=== PATIENT | female | born 1950 | race Caucasian/White ===

== ENCOUNTER 2017-05-05 16:30 | Inpatient (IN) | payer MEDICARE, OTHER ==
[~2017-05-05] VITALS: Ht 154.9 cm; Wt 90.6 kg
[~2017-05-05 16:30] MED LIST: ASPI-516 CHEW; BENZ2TAB PO; BUSP5TAB PO; CEPH-460 PO; CHOL100025 CHEW; FENO145T2 PO; LEVO50TA4 PO; METO50TA PO; PARO40TA2 PO; RANI1TAB5 PO; RISP3 PO
[2017-05-05 16:31] VITALS: BP 131/60; PULSE 90; RESP 14; TEMP 98; O2SAT 95
[2017-05-05 17:59] VITALS: BP 141/89; PULSE 85; RESP 16; TEMP 98.6; O2SAT 93
--- NOTE | 2017-05-05 18:52 | PD ---
HPI Chief Complaint: Psychiatric Symptoms Time Seen by Provider: 17:59 Travel History International Travel<30 days: No Contact w/Intl Traveler<30days: No Traveled to known affect area: No History of Present Illness HPI 66-year-old white female presents to emergency department on a voluntary basis with her . Patient's has dropped his off and gone home but left his phone number. The patient here states that she's feeling depressed. She states that she is not getting out of bed. She sleeping. She is feeling overwhelmed. Patient has history of schizoaffective disorder, depression and catatonia. Patient states that her symptoms and be getting worse over last several days weeks. Patient is a poor historian. Unable to get a history from the patient's . PFSH Past Medical History Narrative Medical Anxiety, depression, schizoaffective, hypercholesterolemia, hypertension, hypothyroidism, arthritis Blood Disorders: No Anxiety: Yes Depression: Yes Cancer: No Cardiac Catheterization: Yes High Cholesterol: Yes Chest Pain: Yes Diabetes: No Diminished Hearing: No Endocrine: Yes Genitourinary: No Herniated Disk: Yes (NECK FUSION) Hypertension: Yes Musculoskeletal: Yes Neurologic: Yes (MINI STROKE 5 YRS AGO, PER ) Psychiatric: Yes Respiratory: No Seizures: No Thyroid Disease: Yes Tetanus Vaccination: Unknown : 1 Para: 1 Miscarriage: 0 : 0 Past Surgical History Narrative Surgical Bilateral knee replacements, cervical fusion, , hysterectomy, cholecystectomy, tonsillectomy Abdominal Surgery: Yes Appendectomy: Yes Section: Yes Cholecystectomy: Yes Gynecologic Surgery: Yes (HYSTERECTOMY, X1) Hysterectomy: Yes Joint Replacement: Yes (BILATERAL KNEE REPLACEMENTS) Thoracic Surgery: Yes (NECK FUSION WITH THA IN PLACE) Tonsillectomy: Yes Social History Alcohol Use: No Tobacco Use: No Substance Use: No Allergies-Medications (Allergen,Severity, Reaction): Coded Allergies: mirtazapine (Unverified Allergy, Severe, 12/29/16) JITTERY/AGITATED Reported Meds & Prescriptions Reported Meds & Active Scripts Active Keflex (Cephalexin) 500 Mg Cap 500 Mg PO Q12H Reported Risperdal (Risperidone) 3 Mg Tab 3 Mg PO BID Vitamin D3 (Cholecalciferol) 1,000 Unit Chew 2,000 Units CHEW DAILY Benztropine (Benztropine Mesylate) 2 Mg Tab 2 Mg PO BID Aspirin 81 Mg Chew 81 Mg CHEW DAILY Buspirone (Buspirone HCl) 5 Mg Tab 5 Mg PO BID Fenofibrate 145 Mg Tab 145 Mg PO DAILY Levothyroxine (Levothyroxine Sodium) 50 Mcg Tab 50 Mcg PO DAILY Paroxetine (Paroxetine HCl) 40 Mg Tab 40 Mg PO DAILY Metoprolol Tartrate 50 Mg Tab 50 Mg PO BID Ranitidine 75 (Ranitidine HCl) 75 Mg Tab 75 Mg PO BID Take 30 to 60 minutes before eating food or drinking beverages that cause heartburn. Review of Systems ROS Limitations: Poor Historian Psychiatric: Positive: Anxiety, Depression, Mood Disorder, No: Suicidal Ideations, Disorder of Thought, Substance Abuse, Homicidal Ideation Physical Exam Narrative GENERAL: Obese, well-developed patient. Patient's examined with the nurse present. SKIN: Warm and dry. Patient has some slight skin irritation in her folds of her groin. Positive erythema. She has a area of ecchymosis to her inner left thigh. HEAD: Normocephalic and atraumatic. EYES: No scleral icterus. No injection or drainage. ENT: No nasal drainage noted. Mucous membranes pink. Airway patent. NECK: Supple, trachea midline. Moves head freely without obvious discomfort. Surgical scar secondary to cervical fusion CARDIOVASCULAR: Regular rate and rhythm without murmurs, gallops, or rubs. RESPIRATORY: Breath sounds equal bilaterally. No accessory muscle use. GASTROINTESTINAL: Obese, positive bowel sounds, Abdomen soft, non-tender, nondistended. EXTREMITIES: No cyanosis or edema. Surgical scars from bilateral knee replacements. BACK: Nontender without obvious deformity. No CVA tenderness. NEURO: Patient is alert and oriented. no sensorimotor deficits. Nonfocal. Normal speech. PSYCH: No delusions. No auditory or visual hallucinations. Flat affect. Poor concentration. Patient closes her eyes intermittently during the interview. Data Data Last Documented VS Vital Signs Date Time Temp Pulse Resp B/P (MAP) Pulse Ox O2 Delivery O2 Flow Rate FiO2 05/05/17 17:59 98.6 85 16 141/89 (106) 93 Orders Orders Complete Blood Count With Diff (05/05/17 18:30) Comprehensive Metabolic Panel (05/05/17 18:30) Thyroid Stimulating Hormone (05/05/17 18:30) Urinalysis - C+S If Indicated (05/05/17 18:30) Psych Screen (05/05/17 18:30) Drug Screen, Random Urine (05/05/17 18:30) Alcohol (Ethanol) (05/05/17 18:30) Salicylates (Aspirin) (05/05/17 18:30) Tylenol (Acetaminophen) (05/05/17 18:30) Urine Culture (05/05/17 19:40) Nitrofurantoin Monohyd Macrocr (Macrobid (05/05/17 20:45) Potassium Chloride (Kcl) (05/05/17 20:45) Nystatin Cream (Mycostatin Cream) (05/05/17 20:45) Labs Laboratory Tests Test 05/05/17 18:48 05/05/17 19:40 White Blood Count 8.2 TH/MM3 Red Blood Count 3.77 MIL/MM3 Hemoglobin 10.2 GM/DL Hematocrit 31.4 % Mean Corpuscular Volume 83.3 FL Mean Corpuscular Hemoglobin 27.1 PG Mean Corpuscular Hemoglobin Concent 32.6 % Red Cell Distribution Width 15.4 % Platelet Count 306 TH/MM3 Mean Platelet Volume 8.5 FL Neutrophils (%) (Auto) 71.0 % Lymphocytes (%) (Auto) 20.1 % Monocytes (%) (Auto) 7.1 % Eosinophils (%) (Auto) 1.3 % Basophils (%) (Auto) 0.5 % Neutrophils # (Auto) 5.8 TH/MM3 Lymphocytes # (Auto) 1.6 TH/MM3 Monocytes # (Auto) 0.6 TH/MM3 Eosinophils # (Auto) 0.1 TH/MM3 Basophils # (Auto) 0.0 TH/MM3 CBC Comment DIFF FINAL Differential Comment Blood Urea Nitrogen 9 MG/DL Creatinine 0.72 MG/DL Random Glucose 119 MG/DL Total Protein 6.7 GM/DL Albumin 2.6 GM/DL Calcium Level 8.2 MG/DL Alkaline Phosphatase 64 U/L Aspartate Amino Transf (AST/SGOT) 24 U/L Alanine Aminotransferase (ALT/SGPT) 14 U/L Total Bilirubin 0.2 MG/DL Sodium Level 140 MEQ/L Potassium Level 3.0 MEQ/L Chloride Level 101 MEQ/L Carbon Dioxide Level 30.2 MEQ/L Anion Gap 9 MEQ/L Estimat Glomerular Filtration Rate 82 ML/MIN Thyroid Stimulating Hormone 3rd Gen 1.110 uIU/ML Salicylates Level LESS THAN 1.7 MG/DL Acetaminophen Level LESS THAN 2.0 MCG/ML Ethyl Alcohol Level LESS THAN 3 MG/DL Urine Color YELLOW Urine Turbidity HAZY Urine pH 6.0 Urine Specific [place] 1.010 Urine Protein NEG mg/dL Urine Glucose (UA) NEG mg/dL Urine Ketones NEG mg/dL Urine Occult Blood NEG Urine Nitrite NEG Urine Bilirubin NEG Urine Urobilinogen LESS THAN 2.0 MG/DL Urine Leukocyte Esterase LARGE Urine RBC 2 /hpf Urine WBC 94 /hpf Urine Squamous Epithelial Cells 1 /hpf Urine Bacteria OCC /hpf Urine Hyaline Casts 1 /lpf Urine Mucus FEW /lpf Microscopic Urinalysis Comment CULTURE INDICATED Urine Opiates Screen NEG Urine Barbiturates Screen NEG Urine Amphetamines Screen NEG Urine Benzodiazepines Screen NEG Urine Cocaine Screen NEG Urine Cannabinoids Screen NEG MDM Medical Decision Making Medical Screen Exam Complete: Yes Emergency Medical Condition: Yes Medical Record Reviewed: Yes Interpretation(s) Laboratory Tests Test 05/05/17 18:48 05/05/17 19:40 White Blood Count 8.2 TH/MM3 Red Blood Count 3.77 MIL/MM3 Hemoglobin 10.2 GM/DL Hematocrit 31.4 % Mean Corpuscular Volume 83.3 FL Mean Corpuscular Hemoglobin 27.1 PG Mean Corpuscular Hemoglobin Concent 32.6 % Red Cell Distribution Width 15.4 % Platelet Count 306 TH/MM3 Mean Platelet Volume 8.5 FL Neutrophils (%) (Auto) 71.0 % Lymphocytes (%) (Auto) 20.1 % Monocytes (%) (Auto) 7.1 % Eosinophils (%) (Auto) 1.3 % Basophils (%) (Auto) 0.5 % Neutrophils # (Auto) 5.8 TH/MM3 Lymphocytes # (Auto) 1.6 TH/MM3 Monocytes # (Auto) 0.6 TH/MM3 Eosinophils # (Auto) 0.1 TH/MM3 Basophils # (Auto) 0.0 TH/MM3 CBC Comment DIFF FINAL Differential Comment Blood Urea Nitrogen 9 MG/DL Creatinine 0.72 MG/DL Random Glucose 119 MG/DL Total Protein 6.7 GM/DL Albumin 2.6 GM/DL Calcium Level 8.2 MG/DL Alkaline Phosphatase 64 U/L Aspartate Amino Transf (AST/SGOT) 24 U/L Alanine Aminotransferase (ALT/SGPT) 14 U/L Total Bilirubin 0.2 MG/DL Sodium Level 140 MEQ/L Potassium Level 3.0 MEQ/L Chloride Level 101 MEQ/L Carbon Dioxide Level 30.2 MEQ/L Anion Gap 9 MEQ/L Estimat Glomerular Filtration Rate 82 ML/MIN Thyroid Stimulating Hormone 3rd Gen 1.110 uIU/ML Salicylates Level LESS THAN 1.7 MG/DL Acetaminophen Level LESS THAN 2.0 MCG/ML Ethyl Alcohol Level LESS THAN 3 MG/DL Urine Color YELLOW Urine Turbidity HAZY Urine pH 6.0 Urine Specific [place] 1.010 Urine Protein NEG mg/dL Urine Glucose (UA) NEG mg/dL Urine Ketones NEG mg/dL Urine Occult Blood NEG Urine Nitrite NEG Urine Bilirubin NEG Urine Urobilinogen LESS THAN 2.0 MG/DL Urine Leukocyte Esterase LARGE Urine RBC 2 /hpf Urine WBC 94 /hpf Urine Squamous Epithelial Cells 1 /hpf Urine Bacteria OCC /hpf Urine Hyaline Casts 1 /lpf Urine Mucus FEW /lpf Microscopic Urinalysis Comment CULTURE INDICATED Urine Opiates Screen NEG Urine Barbiturates Screen NEG Urine Amphetamines Screen NEG Urine Benzodiazepines Screen NEG Urine Cocaine Screen NEG Urine Cannabinoids Screen NEG Differential Diagnosis MDM: High Differential diagnoses: Schizophrenia, schizoaffective disorder, bipolar, anxiety, depression, adjustment reaction, mood disorder NOS, ODD, depressive disorder NOS, dementia, dementia with agitation, psychosis NOS, substance induced mood disorder, DMDD, Asperger syndrome, infection,electrolyte abnormality, malingering. Narrative Course Mental health screening discussed with the patient. Psychiatric screen ordered. Patient been medically cleared. Patient is given Macrobid 100 mg by mouth, potassium 40 mEq by mouth, and nystatin cream. This is medical clearance for psychiatric admission, UTI, hypokalemia, intertrigo Diagnosis Primary Impression: Medical clearance for psychiatric admission Additional Impressions: UTI hypokalemia intertrigo Condition: Stable Howie Pate May 05, 2017 18:52
[2017-05-05 19:04] LABS: AUTOMATED NEUTROPHIL # 5.8 TH/MM3 (1.8-7.7); BASOPHIL % 0.5 % (0.0-2.0); EOSINOPHIL # 0.1 TH/MM3 (0-0.4); EOSINOPHIL % 1.3 % (0.0-4.0); HEMATOCRIT 31.4 % (35.0-46.0); HEMOGLOBIN 10.2 GM/DL (11.6-15.3); LYMPH % 20.1 % (9.0-44.0); LYMPHOCYTE # 1.6 TH/MM3 (1.0-4.8); MEAN CELL VOLUME 83.3 FL (80.0-100.0); MEAN CORPUSCULAR HEMOGLOBIN 27.1 PG (27.0-34.0); MEAN CORPUSCULAR HGB CONC 32.6 % (32.0-36.0); MEAN PLATELET VOLUME 8.5 FL (7.0-11.0); MONO % 7.1 % (0.0-8.0); MONOCYTE # 0.6 TH/MM3 (0-0.9); PLATELET COUNT 306 TH/MM3 (150-450); RED BLOOD COUNT 3.77 MIL/MM3 (4.00-5.30); RED CELL DISTRIBUTION WIDTH 15.4 % (11.6-17.2); WHITE BLOOD COUNT 8.2 TH/MM3 (4.0-11.0)
[2017-05-05 19:20] LABS: ALBUMIN 2.6 GM/DL (3.4-5.0); AST (GOT) 24 U/L (15-37); BICARBONATE 30.2 MEQ/L (21.0-32.0); BLOOD UREA NITROGEN 9 MG/DL (7-18); CALCIUM 8.2 MG/DL (8.5-10.1); CHLORIDE 101 MEQ/L (98-107); CREATININE 0.72 MG/DL (0.50-1.00); GLOMERULAR FILTRATION RATE 82 ML/MIN (>89); GLUCOSE,RANDOM 119 MG/DL (74-106); SODIUM (NA) 140 MEQ/L (136-145)
[2017-05-05 19:21] LABS: ALT (GPT) 14 U/L (10-53)
[2017-05-05 19:31] LABS: ACETAMINOPHEN LESS THAN 2.0 MCG/ML (10.0-30.0); ALKALINE PHOSPHATASE 64 U/L (45-117); TOTAL BILIRUBIN ADULT 0.2 MG/DL (0.2-1.0); TOTAL PROTEIN 6.7 GM/DL (6.4-8.2)
[2017-05-05 20:02] LABS: BACTERIA, URINE OCC /hpf; BILIRUBIN, URINE NEG (NEG); BLOOD, URINE NEG (NEG); GLUCOSE,URINE NEG (NEG); HYALINE CAST, URINE 1 /lpf (RARE); KETONE, URINE NEG (NEG); MUCUS URINE FEW /lpf (OCC); NITRITE,URINE NEG (NEG); SQUAMOUS EPITHELIAL CELL URINE 1 /hpf (0-5); URINE COLOR YELLOW (YELLW/STRAW); URINE LEUKOCYTE ESTERASE LARGE (NEG)
[2017-05-05] MEDS ORDERED: POTASSIUM CHLORIDE 20 MEQ CONTROLLED RELEASE TAB PO ONE (20:45)
[2017-05-05] MEDS ORDERED: NYSTATIN 100,000 UNIT/GM CREAM 15 GM TOPICAL ONE (20:45)
[2017-05-05] MEDS ORDERED: NITROFURANTOIN MONOHYD MACROCR 100 MG CAP PO ONE (20:45)
[2017-05-05] MEDS ORDERED: LORazepam 1 MG TAB PO ONE (23:00)
[2017-05-05 23:49] VITALS: BP 137/61; PULSE 84; RESP 16; TEMP 95.2; O2SAT 97
[2017-05-06 02:44] VITALS: BP 139/70; PULSE 103; RESP 16; TEMP 97.4; O2SAT 95
[2017-05-06 06:32] VITALS: BP 160/67; PULSE 89; RESP 16; TEMP 97.6; O2SAT 96
[2017-05-06] MEDS ORDERED: LORazepam 1 MG TAB PO ONE (10:15)
[2017-05-06 10:26] VITALS: BP 139/73; PULSE 108; RESP 16; O2SAT 96
[2017-05-06] MEDS ORDERED: diphenhydrAMINE HCL 50 MG/ML VIAL IM PRN (15:15)
[2017-05-06] MEDS ORDERED: ALUMINUM/MAGNESIUM/SIMETH 30 ML CUP PO PRN (15:15)
[2017-05-06] MEDS ORDERED: MAGNESIUM HYDROXIDE SUSP 30 ML CUP PO PRN (15:15)
[2017-05-06] MEDS ORDERED: LORazepam 2 MG/ML VIAL IM PRN (15:15)
--- NOTE | 2017-05-06 15:21 | HHI.HP ---
Provisional Diagnosis Admission Date [place] I. Major depressive disorder, recurrent, severe Certification of Person's Competence To Provide Express and Informed Consent I have personally examined Adrianne Andrade , a person being served at [facility] on, May 06, 2017 15:15. Express and informed consent means consent voluntarily given in writing, by a competent person, after sufficient explanation and disclosure of the subject matter involved to enable the person to make a knowing and willful decision without any element of force, fraud, deceit, duress, or other form of constraint or coercion. This person is 18 years of age or older, is not now known to be incompetent to consent to treatment with a guardian advocate, and does not have a health care surrogate or proxy currently making medical treatment decisions. I have found this person to be one of the following: [x] Competent to provide express and informed consent, as defined above, for voluntary admission to this facility and is competent to provide express and informed consent for treatment. He/she has the consistent capacity to make well reasoned, willful, and knowing decisions concerning his or her medical or mental health treatment. The person fully and consistently understands the purpose of the admission for examination/placement and is fully capable of personally exercising all rights [place] Incompetent to provide express and informed consent to voluntary admission, and this is incompetent to provide express and informed consent to treatment. The person must be transferred to involuntary status and a petition for a guardian advocate filed with the Circuit Court. [] Refusing to provide express and informed consent to voluntary admission but is competent to provide express and informed consent for treatment. The person must be discharged or transferred to involuntary status. Form shall be completed within 24 hours of a person's arrival at the receiving facility and filed in the clinical record of each person: 1. Admitted on a voluntary basis 2. Permitted to provide express and informed consent to his/her own treatment 3. Allowed to transfer from involuntary to voluntary status 4. Prior to permitting a person to consent to his or her own treatment after having been previously found incompetent to consent to treatment. History of Present Illness Capacity: Has Capacity HPI 66-year-old female brought in voluntarily by her due to severe symptoms of depression coupled with suicidal thinking and self neglect. Patient has been admitted to [facility] on at least 2 previous occasions. She has been considered for a diagnosis of schizoaffective disorder but appears most recently to have been diagnosed with recurrent major depression. At this time, the patient is moving slowly if at all. Her speech response latency has increased dramatically. Her hygiene has deteriorated. She reports multiple symptoms of depression including depressed mood, anhedonia, diminished energy, thoughts of suicide and (without current plan), anxiety, initial and middle insomnia, feelings of hopelessness and helplessness, decreased self- esteem, and mental confusion. The patient was dropped off by her . Reportedly he did not stay for her evaluation. He also reportedly is unable to care for her. They have been for many years. The patient does not abuse alcohol or illicit substances. She is treated by Dr. Peck, on an outpatient basis and has been prescribed what what this physician considers to be a large amount of Seroquel. She is unable to contract for safety. Review of Systems ROS Limitations: Clinical Condition Psychiatric: COMPLAINS OF: Anxiety, Depression, Suicidal Ideation Except as stated in HPI: all other systems reviewed are Neg Past Psych History Psychological trauma history Unknown for psychological trauma. Violence risk - others (6 mos) Minimal Violence risk - self (6 mos) High Substance Abuse History Drugs/Alcohol past 12 months Denied Past Family Social History Coded Allergies: mirtazapine (Unverified Allergy, Severe, 12/29/16) JITTERY/AGITATED Reported Medications Risperidone (Risperdal) 3 Mg Tab, 3 MG PO BID, TAB 0 Refills 04/06/16 Cholecalciferol (Vitamin D3) 1,000 Unit Chew, 2000 UNITS CHEW DAILY for Nutritional Supplement, BOTTLE 0 Refills 04/06/16 Buspirone (Buspirone) 5 Mg Tab, 5 MG PO BID for Anxiety, TAB 0 Refills 04/06/16 Fenofibrate (Fenofibrate) 145 Mg Tab, 145 MG PO DAILY, TAB 0 Refills 04/06/16 Levothyroxine (Levothyroxine) 50 Mcg Tab, 50 MCG PO DAILY for Thyroid, TAB 0 Refills 04/06/16 Paroxetine (Paroxetine) 40 Mg Tab, 40 MG PO DAILY, TAB 0 Refills 04/06/16 Metoprolol Tartrate (Metoprolol Tartrate) 50 Mg Tab, 50 MG PO BID, TAB 0 Refills 04/06/16 Ranitidine (Ranitidine 75) 75 Mg Tab, 75 MG PO BID for Heartburn, TAB 0 Refills Take 30 to 60 minutes before eating food or drinking beverages that cause heartburn. 04/06/16 Discontinued Reported Medications Aspirin (Aspirin) 81 Mg Chew, 81 MG CHEW DAILY, TAB 0 Refills 04/06/16 Discontinued Scripts Cephalexin (Keflex) 500 Mg Cap, 500 MG PO Q12H for Infection, #12 CAP 0 Refills Prov:Sven Saeed MD R3 04/07/16 Current Medications Medications (Trade) Dose Ordered Sig/Subhash Route Start Time Stop Time Status Last Admin (Ativan) 1 mg Q6H PRN PO 05/06/17 15:15 UNV (Ativan Inj) 1 mg Q6H PRN IM 05/06/17 15:15 UNV (Benadryl) 50 mg Q6H PRN PO 05/06/17 15:15 UNV (Benadryl Inj) 50 mg Q6H PRN IM 05/06/17 15:15 UNV (Tylenol) 650 mg Q4H PRN PO 05/06/17 15:15 UNV (Milk Of Magnesia Liq) 30 ml DAILY PRN PO 05/06/17 15:15 UNV (Mag-Al Plus Susp Liq) 30 ml Q6H PRN PO 05/06/17 15:15 UNV (Desyrel) 50 mg HS PRN PO 05/06/17 15:15 UNV (Tricor) 145 mg DAILY PO 05/07/17 09:00 UNV (Synthroid) 50 mcg DAILY PO 05/06/17 15:15 UNV (Lopressor) 50 mg BID PO 05/06/17 21:00 UNV Non-Formulary Medication 75 mg BID PO 05/06/17 21:00 UNV Family Psych History Positive for mood and anxiety issues. Social History Patient is unemployed. She lives with her of many years. She has a history of recurrent major depressive episodes. She does not abuse alcohol or drugs. She has inadequate family support. Patient's Strengths (min. 2) Verbal and has access to healthcare. Physical Exam GENERAL: SKIN: Warm and dry. HEAD: Normocephalic. EYES: No scleral icterus. No injection or drainage. NECK: Supple, trachea midline. No JVD or lymphadenopathy. CARDIOVASCULAR: Regular rate and rhythm without murmurs, gallops, or rubs. RESPIRATORY: Breath sounds equal bilaterally. No accessory muscle use. GASTROINTESTINAL: Abdomen soft, non-tender, nondistended. MUSCULOSKELETAL: No cyanosis, or edema. BACK: Nontender without obvious deformity. No CVA tenderness. Vital Signs Vital Signs Date Time Temp Pulse Resp B/P (MAP) Pulse Ox O2 Delivery O2 Flow Rate FiO2 05/06/17 10:26 108 16 139/73 (95) 96 Room Air 05/06/17 06:32 97.6 Lab Results Test 05/05/17 18:48 05/05/17 19:40 White Blood Count 8.2 TH/MM3 Red Blood Count 3.77 MIL/MM3 Hemoglobin 10.2 GM/DL Hematocrit 31.4 % Mean Corpuscular Volume 83.3 FL Mean Corpuscular Hemoglobin 27.1 PG Mean Corpuscular Hemoglobin Concent 32.6 % Red Cell Distribution Width 15.4 % Platelet Count 306 TH/MM3 Mean Platelet Volume 8.5 FL Neutrophils (%) (Auto) 71.0 % Lymphocytes (%) (Auto) 20.1 % Monocytes (%) (Auto) 7.1 % Eosinophils (%) (Auto) 1.3 % Basophils (%) (Auto) 0.5 % Neutrophils # (Auto) 5.8 TH/MM3 Lymphocytes # (Auto) 1.6 TH/MM3 Monocytes # (Auto) 0.6 TH/MM3 Eosinophils # (Auto) 0.1 TH/MM3 Basophils # (Auto) 0.0 TH/MM3 CBC Comment DIFF FINAL Differential Comment Blood Urea Nitrogen 9 MG/DL Creatinine 0.72 MG/DL Random Glucose 119 MG/DL Total Protein 6.7 GM/DL Albumin 2.6 GM/DL Calcium Level 8.2 MG/DL Alkaline Phosphatase 64 U/L Aspartate Amino Transf (AST/SGOT) 24 U/L Alanine Aminotransferase (ALT/SGPT) 14 U/L Total Bilirubin 0.2 MG/DL Sodium Level 140 MEQ/L Potassium Level 3.0 MEQ/L Chloride Level 101 MEQ/L Carbon Dioxide Level 30.2 MEQ/L Anion Gap 9 MEQ/L Estimat Glomerular Filtration Rate 82 ML/MIN Thyroid Stimulating Hormone 3rd Gen 1.110 uIU/ML Salicylates Level LESS THAN 1.7 MG/DL Acetaminophen Level LESS THAN 2.0 MCG/ML Ethyl Alcohol Level LESS THAN 3 MG/DL Urine Color YELLOW Urine Turbidity HAZY Urine pH 6.0 Urine Specific [place] 1.010 Urine Protein NEG mg/dL Urine Glucose (UA) NEG mg/dL Urine Ketones NEG mg/dL Urine Occult Blood NEG Urine Nitrite NEG Urine Bilirubin NEG Urine Urobilinogen LESS THAN 2.0 MG/DL Urine Leukocyte Esterase LARGE Urine RBC 2 /hpf Urine WBC 94 /hpf Urine Squamous Epithelial Cells 1 /hpf Urine Bacteria OCC /hpf Urine Hyaline Casts 1 /lpf Urine Mucus FEW /lpf Microscopic Urinalysis Comment CULTURE INDICATED Urine Opiates Screen NEG Urine Barbiturates Screen NEG Urine Amphetamines Screen NEG Urine Benzodiazepines Screen NEG Urine Cocaine Screen NEG Urine Cannabinoids Screen NEG Date/Time Source Procedure Growth Status 05/05/17 19:40 Urine Clean Catch Urine Culture - Preliminary IMMATURE GROWTH - REINCUBATE Resulted Mental Status Examination Appearance: Disheveled Consciousness: Lethargic Orientation: x4 Motor Activity: Abnormal gait Speech: Hesitant, Slow Language: Adequate Fund of Knowledge: Adequate Attention and Concentration: Inadequate Memory: Impaired Mood: Sad, Anxious Affect: Sad, Anxious Thought Process & Associations: Intact Thought Content: Appropriate Hallucination Type: None Delusion Type: None Suicidal Ideation: Yes Suicidal Plan: No Suicidal Intention: No Homicidal Ideation: No Homicidal Plan: No Homicidal Intention: No Insight: Fair Judgment: Adequate Assessment & Plan Problem List: (1) MDD (major depressive disorder), recurrent episode, severe ICD Codes: F33.2 - Major depressive disorder, recurrent severe without psychotic features Status: Acute Assessment & Plan Estimated LOS: days. 66-year-old female with multiple medical issues, chronic and recurrent major depression, severe with current suicidal ideation, being admitted voluntarily due to the risks of self-harm. Patient is psychomotor retarded and not caring for self. is apparently not able or willing to care for her. Patient is in the age group and has multiple medical issues, which put her at high risk for suicide. Therefore, due to her diagnosis, age group, lack of family support and suicidal thinking, she is being admitted for further evaluation and treatment. This physician has ordered a CBC and comprehensive metabolic panel to determine if the patient has any infectious process or metabolic process which might be causing or contributing to her depression. The patient also has a history of thyroid disease and thyroid stimulating hormone level is being obtained as well as a hospitalist consult, to determine if any deficiency and thyroid function is causing or contributing to her depression. Additionally, vitamin B-12 and vitamin D levels are being drawn to determine if any vitamin deficiency is causing or contributing to her depression. The patient does not appear to be psychotic at this time and her Risperdal was stopped because of its rather large dose and the degree of psychomotor retardation the patient is experiencing. Also stopped was her Paxil as it is not working and its inhibition of the cytochrome P4 50 enzyme system puts her at risk with multiple other nonpsychotropic medicines. An EKG was also ordered as the patient's Paxil and Risperdal can adversely affect the electrical conduction system of her heart. This physician spoke with the patient's nurse, Ovidio, regarding her recent behavior. Lastly, case management will be involved in further information gathering and disposition planning. Jatin Javed MD May 06, 2017 15:21
[2017-05-06] MEDS: LEVOTHYROXINE SODIUM 50 MCG TAB PO SCH (16:00)
[2017-05-06 16:06] VITALS: BP 164/98; PULSE 118; RESP 16; O2SAT 95
[2017-05-06 21:06] VITALS: BP 141/63; PULSE 94; RESP 16; TEMP 98.6; O2SAT 93
[2017-05-06] MEDS: LORazepam 1 MG TAB PO PRN (21:27)
[2017-05-06] MEDS: METOPROLOL TARTRATE 50 MG TAB PO SCH (21:27)
[2017-05-06] MEDS: FAMOTIDINE 20 MG TAB PO SCH (21:28)
[2017-05-07] MEDS: diphenhydrAMINE HCL 50 MG CAP PO PRN ×2 (00:14→10:28)
[2017-05-07 05:37] VITALS: BP 158/74; PULSE 70; RESP 16; TEMP 97.6; O2SAT 96
[2017-05-07] MEDS: LEVOTHYROXINE SODIUM 50 MCG TAB PO SCH (05:39)
[2017-05-07] MEDS: LORazepam 1 MG TAB PO PRN ×2 (06:19→17:46)
[2017-05-07 10:21] LABS: AUTOMATED NEUTROPHIL # 4.5 TH/MM3 (1.8-7.7); BASOPHIL % 0.4 % (0.0-2.0); EOSINOPHIL # 0.2 TH/MM3 (0-0.4); EOSINOPHIL % 2.3 % (0.0-4.0); HEMATOCRIT 32.5 % (35.0-46.0); HEMOGLOBIN 10.7 GM/DL (11.6-15.3); LYMPH % 26.7 % (9.0-44.0); LYMPHOCYTE # 1.9 TH/MM3 (1.0-4.8); MEAN CELL VOLUME 82.9 FL (80.0-100.0); MEAN CORPUSCULAR HEMOGLOBIN 27.3 PG (27.0-34.0); MEAN CORPUSCULAR HGB CONC 32.9 % (32.0-36.0); MEAN PLATELET VOLUME 8.8 FL (7.0-11.0); MONO % 7.7 % (0.0-8.0); MONOCYTE # 0.5 TH/MM3 (0-0.9); NEUT % 62.9 % (16.0-70.0); PLATELET COUNT 337 TH/MM3 (150-450); RED BLOOD COUNT 3.91 MIL/MM3 (4.00-5.30); RED CELL DISTRIBUTION WIDTH 16.2 % (11.6-17.2); WHITE BLOOD COUNT 7.1 TH/MM3 (4.0-11.0)
[2017-05-07] MEDS: FAMOTIDINE 20 MG TAB PO SCH ×2 (10:28→21:48)
[2017-05-07] MEDS: METOPROLOL TARTRATE 50 MG TAB PO SCH ×2 (10:28→21:48)
[2017-05-07] MEDS: FENOFIBRATE 145 MG TAB PO SCH (10:28)
[2017-05-07 10:54] LABS: ALBUMIN 2.7 GM/DL (3.4-5.0); AST (GOT) 28 U/L (15-37); BICARBONATE 28.9 MEQ/L (21.0-32.0); BLOOD UREA NITROGEN 6 MG/DL (7-18); CALCIUM 8.8 MG/DL (8.5-10.1); CHLORIDE 101 MEQ/L (98-107); CREATININE 0.49 MG/DL (0.50-1.00); GLOMERULAR FILTRATION RATE 127 ML/MIN (>89); GLUCOSE,RANDOM 83 MG/DL (74-106); SODIUM (NA) 141 MEQ/L (136-145)
[2017-05-07 11:19] LABS: ALKALINE PHOSPHATASE 55 U/L (45-117); ALT (GPT) 16 U/L (10-53); CHOLESTEROL 117 MG/DL (120-200); CHOLESTEROL/ HDL RATIO 2.59 RATIO; HDL CHOLESTEROL 45.1 MG/DL (40.0-60.0); LDL CHOLESTEROL 44 MG/DL (0-99); TOTAL BILIRUBIN ADULT 0.3 MG/DL (0.2-1.0); TOTAL PROTEIN 6.5 GM/DL (6.4-8.2); TRIGLYCERIDES 140 MG/DL (42-150)
[2017-05-07] MEDS ORDERED: POTASSIUM CHLORIDE 20 MEQ CONTROLLED RELEASE TAB PO ONE ×2 (12:00→13:00)
[2017-05-07] MEDS: CIPROFLOXACIN 500 MG TAB PO SCH ×2 (13:18→21:48)
--- NOTE | 2017-05-07 13:29 | PD.CONS ---
HPI Service [facility] Hospitalists Consult Requested By Dr. Mg Woods Reason for Consult Hypokalemia, UTI Primary Care Physician Unknown Diagnoses: (1) Depression (2) Hypokalemia (3) UTI (urinary tract infection) (4) Hypertension History of Present Illness 66-year-old female with past medical history significant for HTN, HLD, hypothyroidism, depression, and arthritis. Patient presented to the emergency department on 05/05 on a voluntary basis with due to depression. Patient was treated with 100 mg of Macrobid by mouth and 40meq KCL along with nystatin cream. She was cleared medically for psychiatric admission where she is currently at the time this encounter. Patient is seen and examined in her room she denies fevers, chills, nausea, vomiting, diarrhea. She denies dysuria or hematuria, she endorses frequency. She denies any shortness of breath, chest pains, or headaches. She denies any abdominal pain at the moment. Review of Systems Except as stated in HPI: all other systems reviewed are Neg Past Family Social History Allergies: Coded Allergies: mirtazapine (Unverified Allergy, Severe, 12/29/16) JITTERY/AGITATED Past Medical History Hypertension Hyperlipidemia Hypothyroidism Depression ? Blood clots in her stomach Past Surgical History Bilateral knee replacement Total hysterectomy Right neck mesh, patient unable to provide details Reported Medications Reported Meds & Active Scripts Active Reported Risperdal (Risperidone) 3 Mg Tab 3 Mg PO BID Vitamin D3 (Cholecalciferol) 1,000 Unit Chew 2,000 Units CHEW DAILY Buspirone (Buspirone HCl) 5 Mg Tab 5 Mg PO BID Fenofibrate 145 Mg Tab 145 Mg PO DAILY Levothyroxine (Levothyroxine Sodium) 50 Mcg Tab 50 Mcg PO DAILY Paroxetine (Paroxetine HCl) 40 Mg Tab 40 Mg PO DAILY Metoprolol Tartrate 50 Mg Tab 50 Mg PO BID Ranitidine 75 (Ranitidine HCl) 75 Mg Tab 75 Mg PO BID Take 30 to 60 minutes before eating food or drinking beverages that cause heartburn. Active Ordered Medications Inpatient Medications Acetaminophen (Tylenol) 650 mg Q4H PRN PO Pain 1-5 or Temp >101F; Start at 15:15 Al Hydrox/Mg Hydrox/Simethicone (Mag-Al Plus Susp Liq) 30 ml Q6H PRN PO DYSPEPSIA; Start 05/06/17 at 15:15 Ciprofloxacin (Cipro) 500 mg Q12HR PO Last administered on 05/07/17 13:18; Admin Dose 500 MG; Start 05/07/17 at 12:00 Diphenhydramine HCl (Benadryl Inj) 50 mg Q6H PRN IM For mild anxiety and/or EPS ; Start 05/06/17 at 15:15 Diphenhydramine HCl (Benadryl) 50 mg Q6H PRN PO For mild anxiety and/or EPS Last administered on 05/07/17 10:28; Admin Dose 50 MG; Start 05/06/17 at 15: 15 Famotidine (Pepcid) 20 mg BID PO Last administered on 05/07/17 10:28; Admin Dose 20 MG; Start 05/06/17 at 21:00 Fenofibrate (Tricor) 145 mg DAILY PO Last administered on 05/07/17 10:28; Admin Dose 145 MG; Start 05/07/17 at 09:00 Levothyroxine Sodium (Synthroid) 50 mcg DAILY@0600 PO Last administered on 05:39; Admin Dose 50 MCG; Start 05/06/17 at 16:00 Lorazepam (Ativan Inj) 1 mg Q6H PRN IM MODERATE TO SEVERE ANXIETY; Start 05/06 at 15:15 Lorazepam (Ativan) 1 mg Q6H PRN PO MODERATE TO SEVERE ANXIETY Last administered on 05/07/17 06:19; Admin Dose 1 MG; Start 05/06/17 at 15:15 Magnesium Hydroxide (Milk Of Magnesia Liq) 30 ml DAILY PRN PO CONSTIPATION; Start 05/06/17 at 15:15 Magnesium Oxide (Mag-Ox) 800 mg Q12HR PO ; Start 05/08/17 at 09:00 Metoprolol Tartrate (Lopressor) 50 mg BID PO Last administered on 05/07/17 10 :28; Admin Dose 50 MG; Start 05/06/17 at 21:00 Nitrofurantoin Macrocrystals (Macrobid) 100 mg ONCE ONCE PO Last administered on 05/05/17 21:30; Admin Dose 100 MG; Start 05/05/17 at 20:45; Stop at 20:46; Status DC Nystatin (Mycostatin Cream) 1 applic ONCE ONCE TOPICAL Last administered on t 20:45; Admin Dose 1 APPLIC; Start 05/05/17 at 20:45; Stop 05/05/17 at 20:46; Status DC Potassium Chloride (KCl) 20 meq ONCE ONCE PO Last administered on 05/07/17 13:31; Admin Dose 20 MEQ; Start 05/07/17 at 13:00; Stop 05/07/17 at 13:01; Status DC Trazodone HCl (Desyrel) 50 mg HS PRN PO INSOMNIA; Start 05/06/17 at 21:00 Family History Mother: Her conditions, does not specify Father: Heart conditions, does not specify Brother: Atrial fibrillation Social History Tobacco use: Denies Alcohol use: Denies Illicit drug use: Denies Physical Exam Vital Signs Vital Signs Date Time Temp Pulse Resp B/P (MAP) Pulse Ox O2 Delivery O2 Flow Rate FiO2 05/07/17 05:37 97.6 70 16 158/74 (102) 96 05/06/17 21:06 98.6 94 16 141/63 (89) 93 05/06/17 16:21 05/06/17 16:06 118 16 164/98 (120) 95 Physical Exam GENERAL: calm, obese, female, in no apparent distress. SKIN: Left groin moisture with redness, no open skin, no ecchymoses or lesions. Cool and dry. HEAD: Atraumatic. Normocephalic. EYES: Pupils equal round and reactive. Extraocular motions intact. No scleral icterus. No injection or drainage. ENT: Nose without bleeding, purulent drainage or septal hematoma. Throat without erythema. Airway patent. NECK: Trachea midline. No JVD or lymphadenopathy. Supple, nontender. CARDIOVASCULAR: Regular rate and rhythm without murmurs, gallops, or rubs. RESPIRATORY: Clear to auscultation. Breath sounds equal bilaterally. No wheezes , rales, or rhonchi. GASTROINTESTINAL: Abdomen obese, soft, non-tender, nondistended. No guarding, active bowel sounds in all quadrants. MUSCULOSKELETAL: Extremities without clubbing, cyanosis, or edema. No joint tenderness, effusion, or edema noted. NEUROLOGICAL: Awake and alert. Cranial nerves grossly intact. Motor and sensory grossly within normal limits. Ambulates without any difficulties, moves all extremities. Normal speech. Laboratory Laboratory Tests Test 05/07/17 09:12 White Blood Count 7.1 Red Blood Count 3.91 Hemoglobin 10.7 Hematocrit 32.5 Mean Corpuscular Volume 82.9 Mean Corpuscular Hemoglobin 27.3 Mean Corpuscular Hemoglobin Concent 32.9 Red Cell Distribution Width 16.2 Platelet Count 337 Mean Platelet Volume 8.8 Neutrophils (%) (Auto) 62.9 Lymphocytes (%) (Auto) 26.7 Monocytes (%) (Auto) 7.7 Eosinophils (%) (Auto) 2.3 Basophils (%) (Auto) 0.4 Neutrophils # (Auto) 4.5 Lymphocytes # (Auto) 1.9 Monocytes # (Auto) 0.5 Eosinophils # (Auto) 0.2 Basophils # (Auto) 0.0 CBC Comment DIFF FINAL Differential Comment Blood Urea Nitrogen 6 Creatinine 0.49 Random Glucose 83 Total Protein 6.5 Albumin 2.7 Calcium Level 8.8 Alkaline Phosphatase 55 Aspartate Amino Transf (AST/SGOT) 28 Alanine Aminotransferase (ALT/SGPT) 16 Total Bilirubin 0.3 Sodium Level 141 Potassium Level 2.7 Chloride Level 101 Carbon Dioxide Level 28.9 Anion Gap 11 Estimat Glomerular Filtration Rate 127 Magnesium Level 1.4 Triglycerides Level 140 Cholesterol Level 117 LDL Cholesterol 44 HDL Cholesterol 45.1 Cholesterol/HDL Ratio 2.59 Vitamin B12 Level 567 25-Hydroxy Vitamin D Total 27.4 Thyroid Stimulating Hormone 3rd Gen 1.260 Date/Time Source Procedure Growth Status 05/05/17 19:40 Urine Clean Catch Urine Culture - Preliminary IMMATURE GROWTH - REINCUBATE Resulted Result Diagram: 05/07/1791105/07/17911 Assessment and Plan Assessment and Plan 66-year-old female with past medical history significant for HTN, HLD, hypothyroidism, depression, and arthritis. Patient presented to the emergency department on 05/05 on a voluntary basis with due to depression. Hypokalemia - Potassium level 2.7, magnesium level I.4 - Replace with potassium 80 Meq and mag 800mg X 2 today with scheduled mag 800mg BID starting tomorrow - Recheck labs tomorrow in the AM UTI - With complaints of frequency, - UA collected on 05/05 +, culture re-incubated due to immature growth - Patient started on Cipro 500 mg every 12 hours - Continue following culture and sensitivity Hypertension, uncontrolled - Patient currently on metoprolol 50 mg twice a day - Will add amlodipine 5 mg - Continue trending blood pressures Anemia, possibly RENEE - Patient does not repot any bleeding - Hemodynamically stable, asymptomatic - Order iron studies Intertrigo - Start Nystatin powder BID, keep area dry. Depression - Treatment plan by psychiatry VTE -Patient ambulating Thank you for this consultation will continue to follow along. Discussed Condition With Discussed with Problem Qualifiers (1) UTI (urinary tract infection): (2) Hypertension: Qualified Codes: I10 - Essential (primary) hypertension Di Troy May 07, 2017 13:29
[2017-05-07] MEDS ORDERED: MAGNESIUM OXIDE 400 MG TAB PO ONE ×2 (13:30→14:00)
[2017-05-07 15:42] VITALS: BP 132/60; PULSE 83; RESP 16; TEMP 98; O2SAT 95
--- NOTE | 2017-05-07 16:51 | HHI.PYPN ---
Subjective Remarks Patient seen for follow up; chart reviewed. Discussion she staff reported the patient had a critical lab values of 2.7 potassium which a stent hospitalist consult was placed and screen writer spoke with Dr. Dewey and was managed by medical team. Patient was found lying in hospital bed with poor eye contact noted to be crying and tearful during interview. Patient states that she has been feeling "tired" of crying and feeling the way she has been feeling. Patient denies any recent stressors that would be contributing to her current symptoms. Patient denies any auditory hallucinations but did endorse increased anxiety as well as feeling depressed (9 out of 10, 10 being at its worst), she reports decreased sleep and reports having not slept 3-4 days prior to admission. He states that she also continues to have some racing thoughts at times, with decreased concentration along with feeling helpless and hopeless. Patient reports that she proves he was being followed by Dr. Peck which she last saw 1- 2 weeks ago but did not able to recall her medications. Patient states that she has been diagnosed with anxiety depression has been hospitalized 3 or 4 times in the last time being 6 months ago here at [facility]. Patient denies any previous suicide attempt or self-injurious behavior. She states that she lives with her is on disability benefits. Patient at this time continues to be noted to be anxious and occasional verbal outbursts and tearful. Review of Systems Except as stated in HPI: all other systems reviewed are Neg Mental Status Examination Appearance: Disheveled Consciousness: Lethargic Orientation: x4 Motor Activity: Abnormal gait Speech: Hesitant, Slow Language: Adequate Fund of Knowledge: Adequate Attention and Concentration: Inadequate Memory: Impaired Mood: Sad, Anxious Affect: Sad, Anxious Thought Process & Associations: Intact Thought Content: Appropriate Hallucination Type: None Delusion Type: None Suicidal Ideation: Yes Suicidal Plan: No Suicidal Intention: No Homicidal Ideation: No Homicidal Plan: No Homicidal Intention: No Insight: Fair Judgment: Impulsive Results Labs Labs reviewed Test 05/07/17 09:12 White Blood Count 7.1 TH/MM3 Red Blood Count 3.91 MIL/MM3 Hemoglobin 10.7 GM/DL Hematocrit 32.5 % Mean Corpuscular Volume 82.9 FL Mean Corpuscular Hemoglobin 27.3 PG Mean Corpuscular Hemoglobin Concent 32.9 % Red Cell Distribution Width 16.2 % Platelet Count 337 TH/MM3 Mean Platelet Volume 8.8 FL Neutrophils (%) (Auto) 62.9 % Lymphocytes (%) (Auto) 26.7 % Monocytes (%) (Auto) 7.7 % Eosinophils (%) (Auto) 2.3 % Basophils (%) (Auto) 0.4 % Neutrophils # (Auto) 4.5 TH/MM3 Lymphocytes # (Auto) 1.9 TH/MM3 Monocytes # (Auto) 0.5 TH/MM3 Eosinophils # (Auto) 0.2 TH/MM3 Basophils # (Auto) 0.0 TH/MM3 CBC Comment DIFF FINAL Differential Comment Blood Urea Nitrogen 6 MG/DL Creatinine 0.49 MG/DL Random Glucose 83 MG/DL Total Protein 6.5 GM/DL Albumin 2.7 GM/DL Calcium Level 8.8 MG/DL Alkaline Phosphatase 55 U/L Aspartate Amino Transf (AST/SGOT) 28 U/L Alanine Aminotransferase (ALT/SGPT) 16 U/L Total Bilirubin 0.3 MG/DL Sodium Level 141 MEQ/L Potassium Level 2.7 MEQ/L Chloride Level 101 MEQ/L Carbon Dioxide Level 28.9 MEQ/L Anion Gap 11 MEQ/L Estimat Glomerular Filtration Rate 127 ML/MIN Magnesium Level 1.4 MG/DL Triglycerides Level 140 MG/DL Cholesterol Level 117 MG/DL LDL Cholesterol 44 MG/DL HDL Cholesterol 45.1 MG/DL Cholesterol/HDL Ratio 2.59 RATIO Vitamin B12 Level 567 PG/ML 25-Hydroxy Vitamin D Total 27.4 ng/ML Thyroid Stimulating Hormone 3rd Gen 1.260 uIU/ML Date/Time Source Procedure Growth Status 05/05/17 19:40 Urine Clean Catch Urine Culture - Preliminary IMMATURE GROWTH - REINCUBATE Resulted Vitals/IOs Vital Signs Date Time Temp Pulse Resp B/P (MAP) Pulse Ox O2 Delivery O2 Flow Rate FiO2 05/07/17 15:42 98.0 83 16 132/60 (84) 95 05/06/17 10:26 Room Air Intake and Output 05/07/17 05/07/17 05/08/17 08:00 16:00 00:00 Intake Total 0 ml 0 ml Balance 0 ml 0 ml Assessment & Plan Problem List: (1) MDD (major depressive disorder), recurrent episode, severe ICD Codes: F33.2 - Major depressive disorder, recurrent severe without psychotic features Status: Acute Assessment & Plan Patient at this time continues to be depressed along with suicidal ideations and noted to have some psychomotor retardation occasional verbal outbursts of crying. Case quetiapine to 50 mg by mouth 3 times a day, continue rest of medications, continue recommendations as per primary medical team. Discharge planning in progress Justification for Cont. Inpt. At risk for further decompensation if at lower level of care Discharge Planning Patient to be discharged back to 's residence 1 psychiatrically stable Mg Woods MD May 07, 2017 16:51
--- NOTE | 2017-05-07 17:41 | EKG ---
Date Performed: 05/07/2017 Time Performed: 10:40:57 PTAGE: 66 years EKG: Sinus rhythm NON-SPECIFIC ST/T WAVE CHANGES PREVIOUS TRACING : 04/07/2016 03.15 Compared to prior tracing no significant change DOCTOR: Wilfred Adhikari Interpretating Date/Time 05/07/2017 17:40:04
[2017-05-07 21:00] VITALS: BP 146/65; PULSE 81; RESP 18; TEMP 98.4; O2SAT 96
[2017-05-07] MEDS: NYSTATIN 100,000 U/GM PWD 15 GM BTL TOPICAL SCH (21:48)
[2017-05-08] MEDS: LORazepam 1 MG TAB PO PRN ×2 (03:54→14:55)
[2017-05-08] MEDS: LEVOTHYROXINE SODIUM 50 MCG TAB PO SCH (06:08)
[2017-05-08 06:13] VITALS: BP 144/72; PULSE 67; RESP 18; TEMP 98.9; O2SAT 95
[2017-05-08 08:25] LABS: AUTOMATED NEUTROPHIL # 4.3 TH/MM3 (1.8-7.7); BASOPHIL # 0.1 TH/MM3 (0-0.2); BASOPHIL % 0.8 % (0.0-2.0); EOSINOPHIL # 0.2 TH/MM3 (0-0.4); EOSINOPHIL % 2.8 % (0.0-4.0); HEMATOCRIT 33.6 % (35.0-46.0); HEMOGLOBIN 10.8 GM/DL (11.6-15.3); LYMPH % 28.6 % (9.0-44.0); LYMPHOCYTE # 2.1 TH/MM3 (1.0-4.8); MEAN CELL VOLUME 83.1 FL (80.0-100.0); MEAN CORPUSCULAR HEMOGLOBIN 26.8 PG (27.0-34.0); MEAN CORPUSCULAR HGB CONC 32.2 % (32.0-36.0); MEAN PLATELET VOLUME 8.8 FL (7.0-11.0); MONO % 9.1 % (0.0-8.0); MONOCYTE # 0.7 TH/MM3 (0-0.9); NEUT % 58.7 % (16.0-70.0); PLATELET COUNT 338 TH/MM3 (150-450); RED BLOOD COUNT 4.05 MIL/MM3 (4.00-5.30); RED CELL DISTRIBUTION WIDTH 16.7 % (11.6-17.2); WHITE BLOOD COUNT 7.3 TH/MM3 (4.0-11.0)
[2017-05-08 08:43] LABS: ALBUMIN 2.8 GM/DL (3.4-5.0); ALT (GPT) 19 U/L (10-53); AST (GOT) 38 U/L (15-37); BICARBONATE 28.6 MEQ/L (21.0-32.0); BLOOD UREA NITROGEN 8 MG/DL (7-18); CALCIUM 9.1 MG/DL (8.5-10.1); CHLORIDE 102 MEQ/L (98-107); CREATININE 0.62 MG/DL (0.50-1.00); GLOMERULAR FILTRATION RATE 97 ML/MIN (>89); GLUCOSE,RANDOM 106 MG/DL (74-106); IRON (FE) 39 MCG/DL (50-170); MAGNESIUM 1.3 MG/DL (1.5-2.5); PHOSPHORUS 2.5 MG/DL (2.5-4.9); SODIUM (NA) 142 MEQ/L (136-145)
[2017-05-08 08:46] LABS: ALKALINE PHOSPHATASE 58 U/L (45-117); TOTAL BILIRUBIN ADULT 0.4 MG/DL (0.2-1.0); TOTAL PROTEIN 6.7 GM/DL (6.4-8.2)
[2017-05-08] MEDS: NYSTATIN 100,000 U/GM PWD 15 GM BTL TOPICAL SCH ×2 (09:00→21:16)
[2017-05-08] MEDS: FENOFIBRATE 145 MG TAB PO SCH (09:35)
[2017-05-08] MEDS: METOPROLOL TARTRATE 50 MG TAB PO SCH ×2 (09:36→21:16)
[2017-05-08] MEDS: diphenhydrAMINE HCL 50 MG CAP PO PRN (09:36)
[2017-05-08] MEDS: CIPROFLOXACIN 500 MG TAB PO SCH (09:36)
[2017-05-08] MEDS: MAGNESIUM OXIDE 400 MG TAB PO SCH ×2 (09:36→21:17)
[2017-05-08] MEDS: amLODIPine BESYLATE 5 MG TAB PO SCH (09:36)
[2017-05-08] MEDS: FAMOTIDINE 20 MG TAB PO SCH ×2 (09:36→21:16)
[2017-05-08] MEDS ORDERED: POTASSIUM CHLORIDE 25 MEQ EFFERVESCENT TAB PO ONE (09:45)
[2017-05-08 10:54] LABS: FERRITIN 553 NG/ML (8-252)
[2017-05-08] MEDS ORDERED: MAGNESIUM OXIDE 400 MG TAB PO ONE ×2 (12:00→16:00)
--- NOTE | 2017-05-08 13:10 | HHI.PR ---
Subjective Remarks 66-year-old female with past medical history significant for HTN, HLD, hypothyroidism, depression, and arthritis. Following-up on hypokalemia and hypomagnesemia. Patient seen and examined in room lying in bed. Patient denies muscle cramps, SOB, chest pain, cough, fever, chills, N/V/D. Denies lower abdominal pain or dysuria. Objective Vitals Vital Signs Date Time Temp Pulse Resp B/P (MAP) Pulse Ox O2 Delivery O2 Flow Rate FiO2 05/08/17 06:13 98.9 67 18 144/72 (96) 95 05/07/17 21:00 98.4 81 18 146/65 (92) 96 05/07/17 15:42 98.0 83 16 132/60 (84) 95 I/O 05/07/17 05/07/17 05/07/17 05/08/17 05/08/17 05/08/17 07:00 15:00 23:00 07:00 15:00 23:00 Intake Total 0 ml Balance 0 ml Intake Oral 0 ml Result Diagram: 05/08/1770605/08/17706 Objective Remarks GENERAL: Calm, obese, female, in no apparent distress. SKIN: No ecchymoses or lesions. Cool and dry. HEAD: Atraumatic. Normocephalic. EYES: Pupils equal round and reactive. No scleral icterus. No injection or drainage. ENT: Airway patent. NECK: Trachea midline. No JVD or lymphadenopathy. CARDIOVASCULAR: Regular rate and rhythm without murmurs, gallops, or rubs. RESPIRATORY: Clear to auscultation. Breath sounds equal bilaterally. No wheezes , rales, or rhonchi. GASTROINTESTINAL: Abdomen obese, soft, non-tender, nondistended. No guarding, active bowel sounds in all quadrants. MUSCULOSKELETAL: Extremities without clubbing, cyanosis, or edema. No joint tenderness, effusion, or edema noted. NEUROLOGICAL: Awake and alert. Cranial nerves grossly intact. Motor and sensory grossly within normal limits. Moves all extremities. Normal speech. A/P Problem List: (1) Depression ICD Code: F32.9 - Major depressive disorder, single episode, unspecified Status: Acute (2) Hypokalemia ICD Code: E87.6 - Hypokalemia Status: Acute (3) UTI (urinary tract infection) ICD Code: N39.0 - Urinary tract infection, site not specified Status: Acute (4) Hypertension ICD Code: I10 - Essential (primary) hypertension Status: Chronic Assessment and Plan 66-year-old female with past medical history significant for HTN, HLD, hypothyroidism, depression, and arthritis. Patient presented to the emergency department on 05/05 on a voluntary basis with due to depression. Hypokalemia - Potassium level 2.7, magnesium level I.4, replace with potassium 80 Meq and mag 800mg X 2 today with scheduled mag 800mg BID starting this AM - K this AM 3.5 additional 25meq KCL PO, Mag 1.3 additional 1600mg mag ox on top of scheduled mag ox BID - Recheck labs tomorrow in the AM UTI - UA collected on 05/05 +, growing Enterococcus Faecalis resistant to Cipro. - DC Cipro, start Macrobid 100mg Q 12 hours Hypertension, uncontrolled - Patient currently on metoprolol 50 mg twice a day - On amlodipine 5 mg as of this AM - Continue trending blood pressures, may increase to 10mg if she is still high tomorrow. Anemia, possibly RENEE/ACD - Mild anemia, Hgb 10.8, Hct 33.6 - Patient does not repot any bleeding - Hemodynamically stable, asymptomatic - Order iron studies with Iron 39, transferrin 200, Ferritin 553 - Start PO iron Intertrigo - Nystatin powder BID, patient encouraged to shower and clean area. Depression - Treatment plan by psychiatry VTE -Patient ambulating Problem Qualifiers (1) UTI (urinary tract infection): (2) Hypertension: Qualified Codes: I10 - Essential (primary) hypertension Di Troy May 08, 2017 13:10
--- NOTE | 2017-05-08 13:38 | HHI.PYPN ---
Subjective Remarks Patient was seen and case discussed with nursing. Patient is quite anxious and paranoid throughout the day. She is laying in bed on her side in a state of fear. Quite tearful during the interview. Progress note reviewed from yesterday and it does not appear that an order was put into start Seroquel. Behaving well on the unit, no outbursts Mental Status Examination Appearance: Disheveled Consciousness: Lethargic Orientation: x4 Motor Activity: Abnormal gait Speech: Hesitant, Slow Language: Adequate Fund of Knowledge: Adequate Attention and Concentration: Inadequate Memory: Impaired Mood: Sad, Anxious Affect: Sad, Anxious Thought Process & Associations: Intact Thought Content: Appropriate Hallucination Type: None Delusion Type: None Suicidal Ideation: No Suicidal Plan: No Suicidal Intention: No Homicidal Ideation: No Homicidal Plan: No Homicidal Intention: No Insight: Fair Judgment: Impulsive Results Labs Test 05/08/17 07:07 White Blood Count 7.3 TH/MM3 Red Blood Count 4.05 MIL/MM3 Hemoglobin 10.8 GM/DL Hematocrit 33.6 % Mean Corpuscular Volume 83.1 FL Mean Corpuscular Hemoglobin 26.8 PG Mean Corpuscular Hemoglobin Concent 32.2 % Red Cell Distribution Width 16.7 % Platelet Count 338 TH/MM3 Mean Platelet Volume 8.8 FL Neutrophils (%) (Auto) 58.7 % Lymphocytes (%) (Auto) 28.6 % Monocytes (%) (Auto) 9.1 % Eosinophils (%) (Auto) 2.8 % Basophils (%) (Auto) 0.8 % Neutrophils # (Auto) 4.3 TH/MM3 Lymphocytes # (Auto) 2.1 TH/MM3 Monocytes # (Auto) 0.7 TH/MM3 Eosinophils # (Auto) 0.2 TH/MM3 Basophils # (Auto) 0.1 TH/MM3 CBC Comment DIFF FINAL Differential Comment Blood Urea Nitrogen 8 MG/DL Creatinine 0.62 MG/DL Random Glucose 106 MG/DL Total Protein 6.7 GM/DL Albumin 2.8 GM/DL Calcium Level 9.1 MG/DL Phosphorus Level 2.5 MG/DL Magnesium Level 1.3 MG/DL Alkaline Phosphatase 58 U/L Aspartate Amino Transf (AST/SGOT) 38 U/L Alanine Aminotransferase (ALT/SGPT) 19 U/L Total Bilirubin 0.4 MG/DL Sodium Level 142 MEQ/L Potassium Level 3.5 MEQ/L Chloride Level 102 MEQ/L Carbon Dioxide Level 28.6 MEQ/L Anion Gap 11 MEQ/L Estimat Glomerular Filtration Rate 97 ML/MIN Iron Level 39 MCG/DL Transferrin 200 MG/DL Ferritin 553 NG/ML Date/Time Source Procedure Growth Status 05/05/17 19:40 Urine Clean Catch Urine Culture - Final Enterococcus Faecalis Complete Vitals/IOs Vital Signs Date Time Temp Pulse Resp B/P (MAP) Pulse Ox O2 Delivery O2 Flow Rate FiO2 05/08/17 06:13 98.9 67 18 144/72 (96) 95 05/06/17 10:26 Room Air Assessment & Plan Problem List: (1) MDD (major depressive disorder), recurrent episode, severe ICD Codes: F33.2 - Major depressive disorder, recurrent severe without psychotic features Status: Acute Assessment & Plan Start Seroquel 50 mg by mouth 3 times a day Justification for Cont. Inpt. Patient would decompensate in a less restrictive setting Sal Valenzuela DO May 08, 2017 13:38
[2017-05-08] MEDS: QUEtiapine FUMARATE 25 MG TAB PO SCH ×2 (14:55→18:37)
[2017-05-08 18:02] VITALS: BP 149/63; PULSE 80; RESP 15; TEMP 98.6; O2SAT 96
[2017-05-08] MEDS: NITROFURANTOIN MONOHYD MACROCR 100 MG CAP PO SCH (18:36)
[2017-05-09] MEDS: LORazepam 1 MG TAB PO PRN (05:10)
[2017-05-09] MEDS: LEVOTHYROXINE SODIUM 50 MCG TAB PO SCH (05:10)
[2017-05-09 06:27] VITALS: BP 105/54; PULSE 73; RESP 16; TEMP 98; O2SAT 95
[2017-05-09 07:59] LABS: BICARBONATE 29.7 MEQ/L (21.0-32.0); CALCIUM 8.9 MG/DL (8.5-10.1); CREATININE 0.71 MG/DL (0.50-1.00)
[2017-05-09] MEDS: NYSTATIN 100,000 U/GM PWD 15 GM BTL TOPICAL SCH ×2 (09:00→21:10)
[2017-05-09] MEDS: QUEtiapine FUMARATE 25 MG TAB PO SCH (09:20)
[2017-05-09] MEDS: FERROUS SULFATE 325 MG (65 MG ELEMENTAL IRON) TAB PO SCH (09:20)
[2017-05-09] MEDS: FENOFIBRATE 145 MG TAB PO SCH (09:21)
[2017-05-09] MEDS: METOPROLOL TARTRATE 50 MG TAB PO SCH ×2 (09:21→21:10)
[2017-05-09] MEDS: NITROFURANTOIN MONOHYD MACROCR 100 MG CAP PO SCH ×2 (09:21→18:16)
[2017-05-09] MEDS: FAMOTIDINE 20 MG TAB PO SCH ×2 (09:21→21:10)
[2017-05-09] MEDS: amLODIPine BESYLATE 5 MG TAB PO SCH (09:21)
[2017-05-09] MEDS: MAGNESIUM OXIDE 400 MG TAB PO SCH (09:21)
--- NOTE | 2017-05-09 11:09 | HHI.PR ---
Subjective Remarks 66-year-old female with past medical history significant for HTN, HLD, hypothyroidism, depression, and arthritis. Following-up on hypokalemia and hypomagnesemia. Patient seen and examined in room lying in bed lying on her right side. Patient is tearful and tells me "my head is peeling off". She reports a headache, she denies any fevers, chills, nausea, vomiting, diarrhea. Discussed with nurses states patient has not complained of any pain or headache to her. Patient has also been having loose stools today. Objective Vitals Vital Signs Date Time Temp Pulse Resp B/P (MAP) Pulse Ox O2 Delivery O2 Flow Rate FiO2 05/09/17 06:27 98.0 73 16 105/54 (71) 95 05/08/17 18:02 98.6 80 15 149/63 (91) 96 I/O 05/08/17 05/08/17 05/08/17 05/09/17 05/09/17 05/09/17 07:00 15:00 23:00 07:00 15:00 23:00 Intake Total 120 ml Balance 120 ml Intake Oral 120 ml Result Diagram: 05/08/17 0707 05/09/17 0630 Objective Remarks GENERAL: Calm, obese, female, tearful. SKIN: No ecchymoses or lesions. Cool and dry. HEAD: Atraumatic. Normocephalic. EYES: Pupils equal round and reactive. No scleral icterus. No injection or drainage. ENT: Airway patent. NECK: Trachea midline. No JVD or lymphadenopathy. CARDIOVASCULAR: Regular rate and rhythm without murmurs, gallops, or rubs. RESPIRATORY: Clear to auscultation. Breath sounds equal bilaterally. No wheezes , rales, or rhonchi. GASTROINTESTINAL: Abdomen obese, soft, non-tender, nondistended. No guarding, active bowel sounds in all quadrants. MUSCULOSKELETAL: Extremities without clubbing, cyanosis, or edema. No joint tenderness, effusion, or edema noted. NEUROLOGICAL: Awake and alert. Cranial nerves grossly intact. Motor and sensory grossly within normal limits. Moves all extremities. Normal speech. A/P Problem List: (1) Depression ICD Code: F32.9 - Major depressive disorder, single episode, unspecified Status: Acute (2) Hypokalemia ICD Code: E87.6 - Hypokalemia Status: Acute (3) UTI (urinary tract infection) ICD Code: N39.0 - Urinary tract infection, site not specified Status: Acute (4) Hypertension ICD Code: I10 - Essential (primary) hypertension Status: Chronic Assessment and Plan 66-year-old female with past medical history significant for HTN, HLD, hypothyroidism, depression, and arthritis. Patient presented to the emergency department on 05/05 on a voluntary basis with due to depression. Hypokalemia, resolved - Potassium 3.7, magnesium 2.0 UTI - UA collected on 05/05 +, growing Enterococcus Faecalis resistant to Cipro. - DC Cipro, start Macrobid 100mg Q 12 hours - Patient denies urinary symptoms. Hypertension, controlled - Patient currently on metoprolol 50 mg twice a day - On amlodipine 5 mg - Continue trending blood pressures Anemia, possibly RENEE/ACD - Mild anemia, Hgb 10.8, Hct 33.6 - Patient does not repot any bleeding - Hemodynamically stable, asymptomatic - Order iron studies with Iron 39, transferrin 200, Ferritin 553 - PO iron Intertrigo - Nystatin powder BID, patient encouraged to shower and clean area. Depression - Treatment plan by psychiatry Headache - Nurse will be administering Tylenol as needed, afebrile with no other complaints Loose stools - Likely secondary to magnesium oxide replacement in the past 2 days - Cut back to mag ox daily and continue monitoring for her diarrhea VTE -Patient ambulating Problem Qualifiers (1) UTI (urinary tract infection): (2) Hypertension: Qualified Codes: I10 - Essential (primary) hypertension Di Troy May 09, 2017 11:08
--- NOTE | 2017-05-09 11:27 | HHI.PYPN ---
Subjective Remarks Patient was seen and case discussed with nursing. Patient remained secluded to bed. She is eating quite poorly, having eaten only 25% of her dinner and refusing breakfast this morning. She appears internally preoccupied. Complaining of anxiety. The Seroquel was started yesterday and will be increased today to 100 mg by mouth 3 times a day. Mental Status Examination Appearance: Disheveled Consciousness: Lethargic Orientation: x4 Motor Activity: Abnormal gait Speech: Hesitant, Slow Language: Adequate Fund of Knowledge: Adequate Attention and Concentration: Inadequate Memory: Impaired Mood: Sad, Anxious Affect: Sad, Anxious Thought Process & Associations: Intact Thought Content: Appropriate Hallucination Type: None Delusion Type: None Suicidal Ideation: No Suicidal Plan: No Suicidal Intention: No Homicidal Ideation: No Homicidal Plan: No Homicidal Intention: No Insight: Fair Judgment: Impulsive Results Labs Test 05/09/17 06:30 Blood Urea Nitrogen 9 MG/DL Creatinine 0.71 MG/DL Random Glucose 107 MG/DL Calcium Level 8.9 MG/DL Magnesium Level 2.0 MG/DL Sodium Level 142 MEQ/L Potassium Level 3.7 MEQ/L Chloride Level 104 MEQ/L Carbon Dioxide Level 29.7 MEQ/L Anion Gap 8 MEQ/L Estimat Glomerular Filtration Rate 83 ML/MIN Date/Time Source Procedure Growth Status 05/05/17 19:40 Urine Clean Catch Urine Culture - Final Enterococcus Faecalis Complete Vitals/IOs Vital Signs Date Time Temp Pulse Resp B/P (MAP) Pulse Ox O2 Delivery O2 Flow Rate FiO2 05/09/17 06:27 98.0 73 16 105/54 (71) 95 05/06/17 10:26 Room Air Assessment & Plan Problem List: (1) MDD (major depressive disorder), recurrent episode, severe ICD Codes: F33.2 - Major depressive disorder, recurrent severe without psychotic features Status: Acute Assessment & Plan Increase Seroquel to 100 mg by mouth 3 times a day Justification for Cont. Inpt. Patient would decompensate in a less restrictive setting Sal Valenzuela DO May 09, 2017 11:27
[2017-05-09] MEDS: diphenhydrAMINE HCL 50 MG CAP PO PRN ×2 (12:05→21:10)
[2017-05-09] MEDS: ACETAMINOPHEN 325 MG TAB PO PRN (12:06)
[2017-05-09] MEDS: QUEtiapine FUMARATE 100 MG TAB PO SCH ×2 (14:05→18:16)
[2017-05-09 18:16] VITALS: BP 115/59; PULSE 85; RESP 16; TEMP 98; O2SAT 98
[2017-05-09] MEDS: traZODone HCL 50 MG TAB PO PRN (21:10)
[2017-05-10] MEDS: ACETAMINOPHEN 325 MG TAB PO PRN (00:57)
[2017-05-10] MEDS: LEVOTHYROXINE SODIUM 50 MCG TAB PO SCH (05:29)
[2017-05-10 05:38] VITALS: BP 119/61; PULSE 71; RESP 16; TEMP 97.3; O2SAT 95
[2017-05-10] MEDS: FENOFIBRATE 145 MG TAB PO SCH (08:54)
[2017-05-10] MEDS: FAMOTIDINE 20 MG TAB PO SCH ×2 (08:54→21:05)
[2017-05-10] MEDS: METOPROLOL TARTRATE 50 MG TAB PO SCH ×2 (08:54→21:05)
[2017-05-10] MEDS: QUEtiapine FUMARATE 100 MG TAB PO SCH ×4 (08:54→17:52)
[2017-05-10] MEDS: MAGNESIUM OXIDE 400 MG TAB PO SCH (08:55)
[2017-05-10] MEDS: FERROUS SULFATE 325 MG (65 MG ELEMENTAL IRON) TAB PO SCH (08:55)
[2017-05-10] MEDS: NITROFURANTOIN MONOHYD MACROCR 100 MG CAP PO SCH ×2 (08:55→18:00)
[2017-05-10] MEDS: amLODIPine BESYLATE 5 MG TAB PO SCH (08:55)
[2017-05-10] MEDS: NYSTATIN 100,000 U/GM PWD 15 GM BTL TOPICAL SCH ×2 (08:55→21:04)
[2017-05-10 09:03] LABS: BICARBONATE 29.4 MEQ/L (21.0-32.0); CALCIUM 8.7 MG/DL (8.5-10.1); CREATININE 0.76 MG/DL (0.50-1.00); MAGNESIUM 1.7 MG/DL (1.5-2.5)
--- NOTE | 2017-05-10 11:02 | HHI.PR ---
Subjective Remarks Follow up for HTN, HLD, depression, arthritis, loose stools, UTI. The patient is seen sleeping in bed, easily awakens. She states she had a mild headache earlier today but this has improved. Denies any lightheadedness, dizziness, visual changes, or weakness. She states her loose stools resolved and now her BMs are solid. Denies any dysuria, suprapubic pain, or fevers/chills. She has no other medical complaints at this time. Objective Vitals Vital Signs Date Time Temp Pulse Resp B/P (MAP) Pulse Ox O2 Delivery O2 Flow Rate FiO2 05/10/17 05:38 97.3 71 16 119/61 (80) 95 05/09/17 18:16 98.0 85 16 115/59 (77) 98 05/09/17 13:10 14 I/O 05/09/17 05/09/17 05/09/17 05/10/17 05/10/17 05/10/17 07:00 15:00 23:00 07:00 15:00 23:00 Intake Total 100 ml Balance 100 ml Intake Oral 100 ml Result Diagram: 05/08/17 0707 05/10/17 0815 Objective Remarks GENERAL: Well-nourished, well-developed female patient in [facility]. SKIN: Warm and dry. No rash. HEENT: Normocephalic. Atraumatic.Pupils equal and round. Mucous membranes pink and moist. CARDIOVASCULAR: Regular rate and rhythm. S1, S2 noted. No murmur appreciated. RESPIRATORY: No accessory muscle use. Clear to auscultation. Breath sounds equal bilaterally. GASTROINTESTINAL: Abdomen soft, non-tender, nondistended. Normoactive bowel sounds x4. MUSCULOSKELETAL: No obvious deformities. Extremities without clubbing, cyanosis , or edema. NEUROLOGICAL: Awake and alert. No obvious cranial nerve deficits. Motor grossly within normal limits. Normal speech. Medications and IVs Current Medications Medications (Trade) Dose Ordered Sig/Subhash Route Start Time Stop Time Status Last Admin (Ativan) 1 mg Q6H PRN PO 05/06/17 15:15 05/09/17 05:10 (Ativan Inj) 1 mg Q6H PRN IM 05/06/17 15:15 (Benadryl) 50 mg Q6H PRN PO 05/06/17 15:15 05/09/17 21:10 (Benadryl Inj) 50 mg Q6H PRN IM 05/06/17 15:15 (Tylenol) 650 mg Q4H PRN PO 05/06/17 15:15 05/10/17 00:57 (Milk Of Magnesia Liq) 30 ml DAILY PRN PO 05/06/17 15:15 (Mag-Al Plus Susp Liq) 30 ml Q6H PRN PO 05/06/17 15:15 (Desyrel) 50 mg HS PRN PO 05/06/17 21:00 05/09/17 21:10 (Tricor) 145 mg DAILY PO 05/07/17 09:00 05/10/17 08:54 (Synthroid) 50 mcg DAILY@0600 PO 05/06/17 16:00 05/10/17 05:29 (Lopressor) 50 mg BID PO 05/06/17 21:00 05/10/17 08:54 (Pepcid) 20 mg BID PO 05/06/17 21:00 05/10/17 08:54 (Norvasc) 5 mg DAILY PO 05/08/17 09:00 05/10/17 08:55 (Mycostatin Powder) 1 applic Q12HR TOPICAL 05/07/17 21:00 05/10/17 08:55 (Macrobid) 100 mg BIDPC PO 05/08/17 18:00 05/15/17 17:59 05/10/17 08:55 (Ferrous Sulfate) 325 mg DAILY PO 05/09/17 09:00 05/10/17 08:55 (SEROquel) 100 mg TID PO 05/09/17 13:00 05/10/17 08:54 (Mag-Ox) 400 mg DAILY PO 05/10/17 09:00 05/10/17 08:55 A/P Problem List: (1) Depression ICD Code: F32.9 - Major depressive disorder, single episode, unspecified Status: Acute (2) Hypokalemia ICD Code: E87.6 - Hypokalemia Status: Acute (3) UTI (urinary tract infection) ICD Code: N39.0 - Urinary tract infection, site not specified Status: Acute (4) Hypertension ICD Code: I10 - Essential (primary) hypertension Status: Chronic Assessment and Plan 66-year-old female with past medical history significant for HTN, HLD, hypothyroidism, depression, and arthritis. Patient presented to the emergency department on 05/05 on a voluntary basis with due to depression. Hypokalemia: K 2.7, Mag 1.3 - Given KCl and Mag replacement - Repeat Potassium 3.3, magnesium 1.7, will give additional replacement UTI - UA 05/05 +, growing Enterococcus Faecalis resistant to Cipro. - Continue on Macrobid 100mg bid x1week - Patient denies urinary symptoms. Hypertension, controlled - Patient currently on metoprolol 50 mg bid and amlodipine 5 mg - Continue trending blood pressures, well controlled Anemia, suspect anemia of chronic disease - Mild anemia, Hgb 10.8, Hct 33.6 - Patient does not repot any bleeding - Hemodynamically stable, asymptomatic - Order iron studies with Iron 39, transferrin 200, Ferritin 553 - Continue oral iron supplement Intertrigo - Nystatin powder BID, patient encouraged to shower and clean area. Depression - Treatment plan by psychiatry Headache - Tylenol as needed, afebrile with no other complaints Loose stools - Likely secondary to magnesium oxide replacement in the past 2 days - Cut back to mag ox daily and continue monitoring for her diarrhea - loose stools resolved DVT Prophylaxis: Patient ambulating Problem Qualifiers (1) UTI (urinary tract infection): (2) Hypertension: Qualified Codes: I10 - Essential (primary) hypertension Susannah Calderón PA-C May 10, 2017 11:02 am
[2017-05-10] MEDS ORDERED: POTASSIUM CHLORIDE 20 MEQ CONTROLLED RELEASE TAB PO ONE (11:15)
[2017-05-10] MEDS: LORazepam 1 MG TAB PO PRN (12:12)
--- NOTE | 2017-05-10 13:05 | HHI.PYPN ---
Subjective Remarks Patient seen and examined with nurse in coverage for Dr. Woods. Chart reviewed. Oral intake appears to be fairly poor, and with only a few exceptions the patient has taken no more than 25% at meals since admission. Case discussed with nursing staff. On my examination today, the patient remains tearful and dysphoric. She endorses deprecatory auditory hallucinations of "words going on in my brain." She says that these hallucinations are "driving me crazy!" These hallucinations are quite distressing for her, and after our interview I hear her wailing in her room, apparently in response to these hallucinations. She denies any command auditory hallucinations to hurt herself or others. She denies any suicidal or homicidal ideation. No physical complaints. Review of Systems ROS Limitations: Psychotic, Poor Historian Except as stated in HPI: all other systems reviewed are Neg Mental Status Examination Appearance: Disheveled Consciousness: Alert Orientation: x4 Motor Activity: Other (no motor abnormalities noted) Speech: Hesitant, Slow Language: Adequate Fund of Knowledge: Adequate Attention and Concentration: Inadequate Mood: Sad, Anxious Affect: Sad, Anxious Thought Process & Associations: Intact Thought Content: Hallucinations Hallucination Type: Auditory (deprecatory, noncommand) Delusion Type: None Suicidal Ideation: No Suicidal Plan: No Suicidal Intention: No Homicidal Ideation: No Homicidal Plan: No Homicidal Intention: No Insight: Fair Judgment: Impulsive Results Labs Test 05/10/17 08:15 Blood Urea Nitrogen 10 MG/DL Creatinine 0.76 MG/DL Random Glucose 113 MG/DL Calcium Level 8.7 MG/DL Magnesium Level 1.7 MG/DL Sodium Level 137 MEQ/L Potassium Level 3.3 MEQ/L Chloride Level 99 MEQ/L Carbon Dioxide Level 29.4 MEQ/L Anion Gap 9 MEQ/L Estimat Glomerular Filtration Rate 77 ML/MIN Date/Time Source Procedure Growth Status 05/05/17 19:40 Urine Clean Catch Urine Culture - Final Enterococcus Faecalis Complete Labs reviewed. Urine sensitivity reveals sensitivity to the Macrobid that the patient is currently receiving for UTI. Hypokalemia has been repleted by the hospitalist. Vitals/IOs Vital Signs Date Time Temp Pulse Resp B/P (MAP) Pulse Ox O2 Delivery O2 Flow Rate FiO2 05/10/17 05:38 97.3 71 16 119/61 (80) 95 05/06/17 10:26 Room Air Assessment & Plan Problem List: (1) MDD (major depressive disorder), recurrent episode, severe ICD Codes: F33.2 - Major depressive disorder, recurrent severe without psychotic features Status: Acute Assessment & Plan Titrate Seroquel to 125 mg 3 times daily to target psychotic symptoms in the setting of depression. Reviewing medication records from previous hospitalizations, it appears that the patient has received as much as 6-800 mg of Seroquel in the past per day. Continue other psychotropics as ordered. Initial weight was estimated; obtain accurate baseline weight. Consulted the dietitian because of poor oral intake. Hospitalist input noted and appreciated. Continue to monitor on the inpatient unit. I have encouraged participation in groups and unit activities as patient is able. Continue other medications and care as ordered. Justification for Cont. Inpt. Medication changes. Impairment in reality construction. High risk for decompensation in less restrictive environment. Discharge Planning Per Dr. Woods Problem Qualifiers (1) MDD (major depressive disorder), recurrent episode, severe: Qualified Codes: F33.3 - Major depressive disorder, recurrent, severe with psychotic symptoms Brennon Ayon MD May 10, 2017 13:05
[2017-05-10 18:00] VITALS: BP 110/51; PULSE 78; RESP 16; TEMP 98.2; O2SAT 96
[2017-05-11 06:05] VITALS: BP 111/51; PULSE 84; RESP 18; TEMP 98.2; O2SAT 94
[2017-05-11] MEDS: LEVOTHYROXINE SODIUM 50 MCG TAB PO SCH (06:33)
[2017-05-11] MEDS: METOPROLOL TARTRATE 50 MG TAB PO SCH ×2 (09:00→20:55)
[2017-05-11] MEDS ORDERED: POTASSIUM CHLORIDE 20 MEQ PWD PACKET PO ONE (09:00)
[2017-05-11] MEDS: amLODIPine BESYLATE 5 MG TAB PO SCH (09:00)
[2017-05-11] MEDS: NYSTATIN 100,000 U/GM PWD 15 GM BTL TOPICAL SCH ×2 (09:09→20:55)
[2017-05-11] MEDS: FERROUS SULFATE 325 MG (65 MG ELEMENTAL IRON) TAB PO SCH (09:09)
[2017-05-11] MEDS: FENOFIBRATE 145 MG TAB PO SCH (09:09)
[2017-05-11] MEDS: NITROFURANTOIN MONOHYD MACROCR 100 MG CAP PO SCH ×2 (09:09→18:37)
[2017-05-11] MEDS: FAMOTIDINE 20 MG TAB PO SCH ×2 (09:09→20:55)
[2017-05-11] MEDS: MAGNESIUM OXIDE 400 MG TAB PO SCH (09:10)
[2017-05-11] MEDS: QUEtiapine FUMARATE 100 MG TAB PO SCH ×2 (09:10→17:03)
--- NOTE | 2017-05-11 11:15 | HHI.PYPN ---
Subjective Remarks Patient seen for follow-up, chart review. Patient noted to be lying in hospital bed noted to be more engaging with editorial writer today compared to admission. Patient states that she is feeling "pretty good was "sometimes but continues to have good or bad mood. Patient noted to be somewhat internally preoccupied at times during interview, denies any auditory hallucinations at this time. Patient states that she continues have some pain and left knee for about one week and reports having history of the surgery in the past. Patient states that she does not having suicidal ideations at this time. Patient plans visited by her today as well as looking forward from a visit from her brother next week. Patient reports having difficulty with sleep but tolerating medications well. Review of Systems Except as stated in HPI: all other systems reviewed are Neg Mental Status Examination Appearance: Disheveled Consciousness: Alert Orientation: x4 Motor Activity: Other (no motor abnormalities noted) Speech: Hesitant, Slow Language: Adequate Fund of Knowledge: Adequate Attention and Concentration: Inadequate Mood: Sad Affect: Sad Thought Process & Associations: Intact Thought Content: Hallucinations (denies today) Hallucination Type: Auditory (denies today) Delusion Type: None Suicidal Ideation: No Suicidal Plan: No Suicidal Intention: No Homicidal Ideation: No Homicidal Plan: No Homicidal Intention: No Insight: Fair Judgment: Impulsive Results Labs Date/Time Source Procedure Growth Status 05/05/17 19:40 Urine Clean Catch Urine Culture - Final Enterococcus Faecalis Complete Vitals/IOs Vital Signs Date Time Temp Pulse Resp B/P (MAP) Pulse Ox O2 Delivery O2 Flow Rate FiO2 05/11/17 06:05 98.2 84 18 111/51 (96) 94 Intake and Output 05/11/17 05/11/17 05/12/17 08:00 16:00 00:00 Intake Total 240 ml Balance 240 ml Assessment & Plan Problem List: (1) MDD (major depressive disorder), recurrent episode, severe ICD Codes: F33.2 - Major depressive disorder, recurrent severe without psychotic features Status: Acute Assessment & Plan Patient at this time continues to be noted to be somewhat dysphoric, internally preoccupied at times, denies any auditory hallucinations recently. Patient denies any suicide ideations. Patient continues to report difficulty with sleep. We'll increase quetiapine to 175 by mouth twice a day 200 mg at bedtime , continue rest of medications. Order physical therapy eval. Discharge planning in progress Justification for Cont. Inpt. At risk for further decompensation in fat lower level of care Discharge Planning Patient to return back to her 's residence once psychiatrically stable Problem Qualifiers (1) MDD (major depressive disorder), recurrent episode, severe: Qualified Codes: F33.3 - Major depressive disorder, recurrent, severe with psychotic symptoms Mg Woods MD May 11, 2017 11:15
[2017-05-11] MEDS ORDERED: QUEtiapine FUMARATE 100 MG TAB PO SCH (16:00)
[2017-05-11 18:00] VITALS: BP 121/56; PULSE 88; RESP 17; TEMP 98.2; O2SAT 96
[2017-05-11] MEDS: POTASSIUM CHLORIDE 20 MEQ CONTROLLED RELEASE TAB PO SCH (20:55)
[2017-05-11] MEDS: QUEtiapine FUMARATE 200 MG TAB PO SCH (20:55)
[2017-05-12] MEDS: LORazepam 1 MG TAB PO PRN (00:06)
[2017-05-12] MEDS: ACETAMINOPHEN 325 MG TAB PO PRN (00:07)
[2017-05-12] MEDS: LEVOTHYROXINE SODIUM 50 MCG TAB PO SCH (05:59)
[2017-05-12 06:01] VITALS: BP 121/72; PULSE 79; RESP 17; TEMP 97.7; O2SAT 97
[2017-05-12] MEDS: QUEtiapine FUMARATE 100 MG TAB PO SCH ×2 (09:00→16:19)
[2017-05-12] MEDS: POTASSIUM CHLORIDE 20 MEQ CONTROLLED RELEASE TAB PO SCH (09:13)
[2017-05-12] MEDS: NITROFURANTOIN MONOHYD MACROCR 100 MG CAP PO SCH ×2 (09:13→17:25)
[2017-05-12] MEDS: FENOFIBRATE 145 MG TAB PO SCH (09:13)
[2017-05-12] MEDS: METOPROLOL TARTRATE 50 MG TAB PO SCH ×2 (09:13→22:01)
[2017-05-12] MEDS: MAGNESIUM OXIDE 400 MG TAB PO SCH (09:13)
[2017-05-12] MEDS: FERROUS SULFATE 325 MG (65 MG ELEMENTAL IRON) TAB PO SCH (09:13)
[2017-05-12] MEDS: FAMOTIDINE 20 MG TAB PO SCH ×2 (09:13→22:01)
[2017-05-12] MEDS: amLODIPine BESYLATE 5 MG TAB PO SCH (09:13)
[2017-05-12] MEDS: NYSTATIN 100,000 U/GM PWD 15 GM BTL TOPICAL SCH ×2 (09:15→22:02)
[2017-05-12 12:10] LABS: BICARBONATE 25.8 MEQ/L (21.0-32.0); CALCIUM 8.9 MG/DL (8.5-10.1); CREATININE 0.84 MG/DL (0.50-1.00); MAGNESIUM 2.1 MG/DL (1.5-2.5)
--- NOTE | 2017-05-12 13:45 | HHI.PR ---
Subjective Remarks No new complaints from the patient. Her magnesium has stabilized. Hypertension has resolved on present treatments. Anemia is also stable. Her latest problem has been hypokalemia and this was replaced and now she is on a supplement for 5 more days. Labs today show normalization of her hypokalemia and further monitoring is no longer needed with supplement for 5 days. At this point she is medically stable. Objective Vital Signs Date Time Temp Pulse Resp B/P (MAP) Pulse Ox O2 Delivery O2 Flow Rate FiO2 05/12/17 06:01 97.7 79 17 121/72 (88) 97 05/11/17 18:00 98.2 88 17 121/56 (77) 96 I/O 05/11/17 05/11/17 05/11/17 05/12/17 05/12/17 05/12/17 07:00 15:00 23:00 07:00 15:00 23:00 Intake Total 360 ml 120 ml Balance 360 ml 120 ml Intake Oral 360 ml 120 ml Result Diagram: 05/08/17 0707 05/12/17 1100 Objective Remarks GENERAL: NAD, A&Ox3 HEAD: Normocephalic. NECK: Supple, trachea midline. No lymphadenopathy. EYES: No scleral icterus. No injection or drainage. CARDIOVASCULAR: Regular rate and rhythm without murmurs, gallops, or rubs. RESPIRATORY: Breath sounds equal bilaterally. No accessory muscle use. GASTROINTESTINAL: Abdomen soft, non-tender, nondistended. MUSCULOSKELETAL: No cyanosis, or edema. SKIN: Warm and dry. NEURO: No focal neurological deficitis. A/P Problem List: (1) Hypertension ICD Code: I10 - Essential (primary) hypertension Status: Chronic (2) UTI (urinary tract infection) ICD Code: N39.0 - Urinary tract infection, site not specified Status: Acute (3) Depression ICD Code: F32.9 - Major depressive disorder, single episode, unspecified Status: Acute (4) Hypokalemia ICD Code: E87.6 - Hypokalemia Status: Acute (5) MDD (major depressive disorder), recurrent episode, severe ICD Code: F33.2 - Major depressive disorder, recurrent severe without psychotic features Status: Acute Assessment and Plan Assessment and Plan 66-year-old female admitted secondary to severe depression. Past medical history significant for HTN, HLD, hypothyroidism, depression, and arthritis. Hypokalemia and, hypo-magnesium, hypertension, and anemia are all now stabilized. Hypokalemia Resolved Continue supplementation through 05/16/17 No further need for monitoring Will sign off at this time UTI Finishing course of Macrobid on 04/28/17 No need for further monitoring Hypertension Controlled Continue metoprolol 50 mg by mouth twice a day Continue amlodipine 5 mg by mouth daily Anemia of chronic disease Stability documented No need for further monitoring Follow as an outpatient Intertrigo Nystatin powder as needed twice a day Depression Treatment per psychiatry Headache Resolved As needed Tylenol for recurrence Loose stools Resolved DVT Prophylaxis Continue ambulation Patient is medically clear for discharge from psychiatry clears this patient for discharge. Her the need for monitoring. Medical team will sign off at this time. Problem Qualifiers (1) Hypertension: Qualified Codes: I10 - Essential (primary) hypertension (2) UTI (urinary tract infection): (3) MDD (major depressive disorder), recurrent episode, severe: Qualified Codes: F33.3 - Major depressive disorder, recurrent, severe with psychotic symptoms Antwon Harley MD May 12, 2017 13:45
[2017-05-12] MEDS ORDERED: AMLO5 PO (13:49)
[2017-05-12 18:23] VITALS: BP 124/74; PULSE 76; RESP 18; TEMP 97.4; O2SAT 96
--- NOTE | 2017-05-12 20:50 | HHI.PYPN ---
Subjective Remarks Patient seen for follow up; chart reviewed. Discussion with nursing staff reported that the patient had reported seeing cars in the unit hallways as well as animals outside her window; confused at times. Patient found lying on hospital bed, noted to be malodorous. Patient states that she is feeling "better" and states that she continues to feel depressed (5/10 - 10 being its worst), denied any SI. She states that she had visit with her yesterday but that it was a short visit. She denies any AVH , tolerating medications well. Review of Systems Except as stated in HPI: all other systems reviewed are Neg Mental Status Examination Appearance: Disheveled, Malodorous Consciousness: Alert Orientation: x4 Motor Activity: Other (no motor abnormalities noted) Speech: Slow Language: Adequate Fund of Knowledge: Adequate Attention and Concentration: Inadequate Mood: Sad Affect: Blunt Thought Process & Associations: Intact, Linear Thought Content: Hallucinations (denies today) Hallucination Type: Auditory (denies today) Delusion Type: None Suicidal Ideation: No Suicidal Plan: No Suicidal Intention: No Homicidal Ideation: No Homicidal Plan: No Homicidal Intention: No Insight: Fair Judgment: Impulsive Results Labs labs reviewed Test 05/12/17 11:00 Blood Urea Nitrogen 8 MG/DL Creatinine 0.84 MG/DL Random Glucose 98 MG/DL Calcium Level 8.9 MG/DL Magnesium Level 2.1 MG/DL Sodium Level 137 MEQ/L Potassium Level 5.0 MEQ/L Chloride Level 104 MEQ/L Carbon Dioxide Level 25.8 MEQ/L Anion Gap 7 MEQ/L Estimat Glomerular Filtration Rate 68 ML/MIN Date/Time Source Procedure Growth Status 05/05/17 19:40 Urine Clean Catch Urine Culture - Final Enterococcus Faecalis Complete Vitals/IOs Vital Signs Date Time Temp Pulse Resp B/P (MAP) Pulse Ox O2 Delivery O2 Flow Rate FiO2 05/12/17 18:23 97.4 76 18 124/74 (27) 96 Assessment & Plan Problem List: (1) MDD (major depressive disorder), recurrent episode, severe ICD Codes: F33.2 - Major depressive disorder, recurrent severe without psychotic features Status: Acute Assessment & Plan Patient continues to be noted to be depressed, endorsing VH to staff but denying during interview. Patient noted to be malodorous and mostly in bed and not participating in groups or activities. Quetiapine increased to 125/125/ 200mg. Continue rest of medications and recommendations as per primary medical team. Continue PT. Discharge planning in progress. Justification for Cont. Inpt. At risk for further decompensation if at lower level of care. Problem Qualifiers (1) MDD (major depressive disorder), recurrent episode, severe: Qualified Codes: F33.3 - Major depressive disorder, recurrent, severe with psychotic symptoms Mg Woods MD May 12, 2017 20:50
[2017-05-12] MEDS: QUEtiapine FUMARATE 200 MG TAB PO SCH (22:01)
[2017-05-13 06:00] VITALS: BP 111/73; PULSE 75; RESP 17; TEMP 97.4; O2SAT 94
[2017-05-13] MEDS: LEVOTHYROXINE SODIUM 50 MCG TAB PO SCH (06:30)
[2017-05-13 08:05] LABS: AUTOMATED NEUTROPHIL # 2.7 TH/MM3 (1.8-7.7); BASOPHIL % 0.8 % (0.0-2.0); EOSINOPHIL # 0.2 TH/MM3 (0-0.4); EOSINOPHIL % 4.2 % (0.0-4.0); HEMATOCRIT 37.4 % (35.0-46.0); HEMOGLOBIN 11.9 GM/DL (11.6-15.3); LYMPH % 32.4 % (9.0-44.0); LYMPHOCYTE # 1.7 TH/MM3 (1.0-4.8); MEAN CELL VOLUME 84.7 FL (80.0-100.0); MEAN CORPUSCULAR HEMOGLOBIN 26.9 PG (27.0-34.0); MEAN CORPUSCULAR HGB CONC 31.8 % (32.0-36.0); MEAN PLATELET VOLUME 8.8 FL (7.0-11.0); MONO % 10.5 % (0.0-8.0); MONOCYTE # 0.5 TH/MM3 (0-0.9); NEUT % 52.1 % (16.0-70.0); PLATELET COUNT 301 TH/MM3 (150-450); RED BLOOD COUNT 4.41 MIL/MM3 (4.00-5.30); WHITE BLOOD COUNT 5.1 TH/MM3 (4.0-11.0)
[2017-05-13 08:16] LABS: ALBUMIN 2.7 GM/DL (3.4-5.0); AST (GOT) 81 U/L (15-37); BICARBONATE 25.1 MEQ/L (21.0-32.0); BLOOD UREA NITROGEN 9 MG/DL (7-18); CHLORIDE 105 MEQ/L (98-107); CREATININE 0.66 MG/DL (0.50-1.00); GLOMERULAR FILTRATION RATE 90 ML/MIN (>89); GLUCOSE,RANDOM 86 MG/DL (74-106); SODIUM (NA) 139 MEQ/L (136-145)
[2017-05-13 08:17] LABS: ALT (GPT) 40 U/L (10-53)
[2017-05-13 08:20] LABS: ALKALINE PHOSPHATASE 68 U/L (45-117); TOTAL BILIRUBIN ADULT 0.4 MG/DL (0.2-1.0); TOTAL PROTEIN 7.2 GM/DL (6.4-8.2)
[2017-05-13] MEDS: METOPROLOL TARTRATE 50 MG TAB PO SCH ×3 (08:59→21:00)
[2017-05-13] MEDS: amLODIPine BESYLATE 5 MG TAB PO SCH (09:00)
[2017-05-13] MEDS: FERROUS SULFATE 325 MG (65 MG ELEMENTAL IRON) TAB PO SCH (09:00)
[2017-05-13] MEDS: NYSTATIN 100,000 U/GM PWD 15 GM BTL TOPICAL SCH ×2 (09:00→21:00)
[2017-05-13] MEDS: POTASSIUM CHLORIDE 20 MEQ CONTROLLED RELEASE TAB PO SCH (09:00)
[2017-05-13] MEDS: MAGNESIUM OXIDE 400 MG TAB PO SCH (09:00)
[2017-05-13] MEDS: NITROFURANTOIN MONOHYD MACROCR 100 MG CAP PO SCH ×2 (09:01→17:14)
[2017-05-13] MEDS: FENOFIBRATE 145 MG TAB PO SCH (09:01)
[2017-05-13] MEDS: QUEtiapine FUMARATE 100 MG TAB PO SCH ×2 (09:07→16:00)
[2017-05-13] MEDS: FAMOTIDINE 20 MG TAB PO SCH ×3 (09:07→21:00)
--- NOTE | 2017-05-13 12:50 | PD.TTN ---
Patient Problems 1. Discharge planning 2. Medication compliance 3. Knowledge deficit 4. Lack of coping skills Progress Toward Goals Provider Present: Dr. Curtis Woods Provider Input: Patient is on medication regiment at hospital. Has been compliant with medications and not observed to have side effects. Patient continues to endorse low mood and feelings of depression. Patient also endorses delusions. Nurse(s) Input: Patient is isolative to room and is relucant to self-care, such as bathing and eating. Patient does attend food groups, but prefers to be in room. Patient has no motiviation and energy. Sleeping well. Psychiatric Counselors Present: LISA Min Psych Therapist Input: Patient continues to have delusions, such as seeing cars in hallways. Patient states that she feels low and has no energy. Patient is not attending to ADLs and will need to be monitored for changes in progress. Group Spec/RT/OT/GEORGES Present: Dominick Young OT Group Spec/RT/OT/GEORGES Input: Patient is attending food groups and remains isolative to room. Discharge Plan Once stablize, patient will return back to home with . Mi Pickens May 13, 2017 12:49
--- NOTE | 2017-05-13 15:40 | HHI.PYPN ---
Subjective Remarks Patient seen for follow-up, chart review. The sister reported the patient required a lot of encouragement denies any suicidal ideation but mostly isolative to her bed. Patient found lying in hospital bed noted to be disheveled and malodorous. Patient states that she is feeling "okay" but then states that she is not feeling too good. Patient reports that she continues to feel somewhat depressed but denying any suicidal ideations or perceptual disturbances at this time. Patient states that she spoke with had visit from yesterday but that was very short and that he did not say much. Patient was encouraged to get out of bed per disorder groups activities and take showers a which she agreed. Patient with assisted via wheelchair to the restroom and subsequently taken to day room where she was away and to get into the shower with the help of staff. Review of Systems Except as stated in HPI: all other systems reviewed are Neg Mental Status Examination Appearance: Disheveled, Malodorous Consciousness: Alert Orientation: x4 Motor Activity: Other (no motor abnormalities noted) Speech: Slow Language: Adequate Fund of Knowledge: Adequate Attention and Concentration: Inadequate Mood: Sad Affect: Blunt Thought Process & Associations: Intact, Linear Thought Content: Hallucinations (denies today) Hallucination Type: Auditory (denies today) Delusion Type: None Suicidal Ideation: No Suicidal Plan: No Suicidal Intention: No Homicidal Ideation: No Homicidal Plan: No Homicidal Intention: No Insight: Fair Judgment: Impulsive Results Labs Labs reviewed Test 05/13/17 07:10 White Blood Count 5.1 TH/MM3 Red Blood Count 4.41 MIL/MM3 Hemoglobin 11.9 GM/DL Hematocrit 37.4 % Mean Corpuscular Volume 84.7 FL Mean Corpuscular Hemoglobin 26.9 PG Mean Corpuscular Hemoglobin Concent 31.8 % Red Cell Distribution Width 17.0 % Platelet Count 301 TH/MM3 Mean Platelet Volume 8.8 FL Neutrophils (%) (Auto) 52.1 % Lymphocytes (%) (Auto) 32.4 % Monocytes (%) (Auto) 10.5 % Eosinophils (%) (Auto) 4.2 % Basophils (%) (Auto) 0.8 % Neutrophils # (Auto) 2.7 TH/MM3 Lymphocytes # (Auto) 1.7 TH/MM3 Monocytes # (Auto) 0.5 TH/MM3 Eosinophils # (Auto) 0.2 TH/MM3 Basophils # (Auto) 0.0 TH/MM3 CBC Comment DIFF FINAL Differential Comment Blood Urea Nitrogen 9 MG/DL Creatinine 0.66 MG/DL Random Glucose 86 MG/DL Total Protein 7.2 GM/DL Albumin 2.7 GM/DL Calcium Level 9.0 MG/DL Alkaline Phosphatase 68 U/L Aspartate Amino Transf (AST/SGOT) 81 U/L Alanine Aminotransferase (ALT/SGPT) 40 U/L Total Bilirubin 0.4 MG/DL Sodium Level 139 MEQ/L Potassium Level 4.2 MEQ/L Chloride Level 105 MEQ/L Carbon Dioxide Level 25.1 MEQ/L Anion Gap 9 MEQ/L Estimat Glomerular Filtration Rate 90 ML/MIN Date/Time Source Procedure Growth Status 05/05/17 19:40 Urine Clean Catch Urine Culture - Final Enterococcus Faecalis Complete Vitals/IOs Vital Signs Date Time Temp Pulse Resp B/P (MAP) Pulse Ox O2 Delivery O2 Flow Rate FiO2 05/13/17 06:00 97.4 75 17 111/73 (00) 94 Assessment & Plan Problem List: (1) MDD (major depressive disorder), recurrent episode, severe ICD Codes: F33.2 - Major depressive disorder, recurrent severe without psychotic features Status: Acute Assessment & Plan Age at this time although continues to have depressed mood and denying any suicidal ideations has been noted to have a motivation, noted most the to be lying in hospital bed, malodorous not taking showers or caring for self and require a lot of encouragement to do these basic ADLs. Any possible due to patient's difficulty of getting out of bed or feeling sleepy dosage for quetiapine will be mostly pleasant at bedtime and measurable now be 50/50/300 mg. Continue to monitor mood and behavior, continue recommendations as per primary medical team. Discharge planning in progress Justification for Cont. Inpt. At risk for further decompensation if at lower level of care Discharge Planning Patient to return back to her residence when psychiatrically stable Problem Qualifiers (1) MDD (major depressive disorder), recurrent episode, severe: Qualified Codes: F33.3 - Major depressive disorder, recurrent, severe with psychotic symptoms Mg Woods MD May 13, 2017 15:39
[2017-05-13 17:08] VITALS: BP 133/102; PULSE 84; RESP 17; TEMP 98; O2SAT 94
[2017-05-13] MEDS: traZODone HCL 50 MG TAB PO PRN (20:41)
[2017-05-13] MEDS: QUEtiapine FUMARATE 300 MG TAB PO SCH ×2 (20:41→21:00)
[2017-05-14] MEDS: LORazepam 1 MG TAB PO PRN (03:13)
[2017-05-14 05:43] VITALS: BP 135/62; PULSE 77; RESP 16; TEMP 98; O2SAT 98
[2017-05-14] MEDS: LEVOTHYROXINE SODIUM 50 MCG TAB PO SCH (05:58)
[2017-05-14] MEDS: NYSTATIN 100,000 U/GM PWD 15 GM BTL TOPICAL SCH ×2 (09:00→21:04)
[2017-05-14] MEDS: MAGNESIUM OXIDE 400 MG TAB PO SCH (10:03)
[2017-05-14] MEDS: METOPROLOL TARTRATE 50 MG TAB PO SCH ×2 (10:03→21:04)
[2017-05-14] MEDS: diphenhydrAMINE HCL 50 MG CAP PO PRN (10:03)
[2017-05-14] MEDS: FERROUS SULFATE 325 MG (65 MG ELEMENTAL IRON) TAB PO SCH (10:03)
[2017-05-14] MEDS: POTASSIUM CHLORIDE 20 MEQ CONTROLLED RELEASE TAB PO SCH (10:04)
[2017-05-14] MEDS: FENOFIBRATE 145 MG TAB PO SCH (10:04)
[2017-05-14] MEDS: QUEtiapine FUMARATE 100 MG TAB PO SCH ×2 (10:06→15:45)
[2017-05-14] MEDS: amLODIPine BESYLATE 5 MG TAB PO SCH (10:06)
[2017-05-14] MEDS: FAMOTIDINE 20 MG TAB PO SCH ×2 (10:06→21:04)
[2017-05-14] MEDS: NITROFURANTOIN MONOHYD MACROCR 100 MG CAP PO SCH ×2 (10:06→17:57)
--- NOTE | 2017-05-14 16:17 | HHI.PYPN ---
Subjective Remarks Patient seen for follow-up, chart reviewed. Discussion with nursing staff reported that patient had showered yesterday, was noted to be crying and yelling this morning. Patient was found lying on hospital bed superficially cooperative stating that she is feeling ok but continues to feel depressed. Patient has been mostly isolative to her room, at times participates in meals only. Patient was able to shower but with encouragement. Patient denies any SI but continues to feel avolition. Review of Systems Except as stated in HPI: all other systems reviewed are Neg Mental Status Examination Appearance: Appropriate Consciousness: Alert Orientation: x4 Motor Activity: Other (no motor abnormalities noted) Speech: Slow Language: Adequate Fund of Knowledge: Adequate Attention and Concentration: Inadequate Mood: Irritable Affect: Irritable Thought Process & Associations: Intact, Linear Thought Content: Hallucinations (denies today) Hallucination Type: Auditory (denies today) Delusion Type: None Suicidal Ideation: No Suicidal Plan: No Suicidal Intention: No Homicidal Ideation: No Homicidal Plan: No Homicidal Intention: No Insight: Fair Judgment: Impulsive Results Labs Date/Time Source Procedure Growth Status 05/05/17 19:40 Urine Clean Catch Urine Culture - Final Enterococcus Faecalis Complete Vitals/IOs Vital Signs Date Time Temp Pulse Resp B/P (MAP) Pulse Ox O2 Delivery O2 Flow Rate FiO2 05/14/17 05:43 98.0 77 16 135/62 (86) 98 Intake and Output 05/14/17 05/14/17 05/15/17 08:00 16:00 00:00 Intake Total 360 ml Balance 360 ml Assessment & Plan Problem List: (1) MDD (major depressive disorder), recurrent episode, severe ICD Codes: F33.2 - Major depressive disorder, recurrent severe without psychotic features Status: Acute Assessment & Plan Patient continues with depressed mood, continues being isolative with minimal participation in activities. Will start wellbutrin 150mg PO daily, continue rest of medications. Continue to encourage patient to participate in groups and activities, maintain personal hygiene, and less isolative. Discharge planning in progress. Justification for Cont. Inpt. At risk for further decompensation at lower level of care Discharge Planning To be discharged back to her residence when psychiatrically stable. Problem Qualifiers (1) MDD (major depressive disorder), recurrent episode, severe: Qualified Codes: F33.3 - Major depressive disorder, recurrent, severe with psychotic symptoms Mg Woods MD May 14, 2017 16:17
[2017-05-14 18:00] VITALS: BP 116/55; PULSE 84; RESP 17; TEMP 98.4; O2SAT 93
[2017-05-14] MEDS: QUEtiapine FUMARATE 300 MG TAB PO SCH (21:04)
[2017-05-15] MEDS: LEVOTHYROXINE SODIUM 50 MCG TAB PO SCH (06:10)
[2017-05-15 06:32] VITALS: BP 108/57; PULSE 88; RESP 17; TEMP 98.1; O2SAT 100
[2017-05-15] MEDS: NITROFURANTOIN MONOHYD MACROCR 100 MG CAP PO SCH (10:04)
[2017-05-15] MEDS: METOPROLOL TARTRATE 50 MG TAB PO SCH ×2 (10:04→21:23)
[2017-05-15] MEDS: FERROUS SULFATE 325 MG (65 MG ELEMENTAL IRON) TAB PO SCH (10:05)
[2017-05-15] MEDS: amLODIPine BESYLATE 5 MG TAB PO SCH (10:05)
[2017-05-15] MEDS: POTASSIUM CHLORIDE 20 MEQ CONTROLLED RELEASE TAB PO SCH (10:05)
[2017-05-15] MEDS: buPROPion HCL 150 MG SUSTAINED RELEASE TAB PO SCH (10:05)
[2017-05-15] MEDS: MAGNESIUM OXIDE 400 MG TAB PO SCH (10:05)
[2017-05-15] MEDS: FAMOTIDINE 20 MG TAB PO SCH ×2 (10:05→21:23)
[2017-05-15] MEDS: FENOFIBRATE 145 MG TAB PO SCH (10:05)
[2017-05-15] MEDS: QUEtiapine FUMARATE 100 MG TAB PO SCH ×2 (10:30→16:03)
--- NOTE | 2017-05-15 14:15 | HHI.PYPN ---
Subjective Remarks Pt seen and discussed with staff. She remains anxious and depressed. Self care is poor and pt is malodorous and disheveled. She is compliant with medications.She has tried to get out of room more today. Mental Status Examination Appearance: Appropriate Consciousness: Alert Orientation: x4 Motor Activity: Other (no motor abnormalities noted) Speech: Slow Language: Adequate Fund of Knowledge: Adequate Attention and Concentration: Inadequate Mood: Irritable Affect: Irritable Thought Process & Associations: Intact, Linear Thought Content: Hallucinations (denies today) Hallucination Type: Auditory (denies today) Delusion Type: None Suicidal Ideation: No Suicidal Plan: No Suicidal Intention: No Homicidal Ideation: No Homicidal Plan: No Homicidal Intention: No Insight: Fair Judgment: Impulsive Results Labs Date/Time Source Procedure Growth Status 05/05/17 19:40 Urine Clean Catch Urine Culture - Final Enterococcus Faecalis Complete Vitals/IOs Vital Signs Date Time Temp Pulse Resp B/P (MAP) Pulse Ox O2 Delivery O2 Flow Rate FiO2 05/15/17 06:32 98.1 88 17 108/57 (74) 100 Intake and Output 05/15/17 05/15/17 05/16/17 08:00 16:00 00:00 Intake Total 0 ml 240 ml Balance 0 ml 240 ml Assessment & Plan Problem List: (1) MDD (major depressive disorder), recurrent episode, severe ICD Codes: F33.2 - Major depressive disorder, recurrent severe without psychotic features Status: Acute Assessment & Plan Continue current tx plan. Estimated LOS: days Justification for Cont. Inpt. impairments in self care Problem Qualifiers (1) MDD (major depressive disorder), recurrent episode, severe: Qualified Codes: F33.3 - Major depressive disorder, recurrent, severe with psychotic symptoms Conchis Mclean MD May 15, 2017 14:15
[2017-05-15] MEDS: NYSTATIN 100,000 U/GM PWD 15 GM BTL TOPICAL SCH ×2 (16:10→21:00)
[2017-05-15 18:30] VITALS: BP 116/56; PULSE 79; RESP 16; TEMP 98.5; O2SAT 91
[2017-05-15] MEDS: QUEtiapine FUMARATE 300 MG TAB PO SCH (21:23)
[2017-05-16 06:14] VITALS: BP 116/57; PULSE 80; RESP 17; TEMP 98.1; O2SAT 93
[2017-05-16] MEDS: LEVOTHYROXINE SODIUM 50 MCG TAB PO SCH (06:20)
[2017-05-16] MEDS: NYSTATIN 100,000 U/GM PWD 15 GM BTL TOPICAL SCH ×2 (09:00→21:02)
[2017-05-16] MEDS: FAMOTIDINE 20 MG TAB PO SCH ×2 (09:57→21:01)
[2017-05-16] MEDS: buPROPion HCL 150 MG SUSTAINED RELEASE TAB PO SCH (09:57)
[2017-05-16] MEDS: MAGNESIUM OXIDE 400 MG TAB PO SCH (09:57)
[2017-05-16] MEDS: FERROUS SULFATE 325 MG (65 MG ELEMENTAL IRON) TAB PO SCH (09:57)
[2017-05-16] MEDS: METOPROLOL TARTRATE 50 MG TAB PO SCH ×2 (09:57→21:01)
[2017-05-16] MEDS: amLODIPine BESYLATE 5 MG TAB PO SCH (09:57)
[2017-05-16] MEDS: FENOFIBRATE 145 MG TAB PO SCH (09:57)
[2017-05-16] MEDS: POTASSIUM CHLORIDE 20 MEQ CONTROLLED RELEASE TAB PO SCH (09:57)
[2017-05-16] MEDS: QUEtiapine FUMARATE 100 MG TAB PO SCH ×2 (10:01→16:49)
--- NOTE | 2017-05-16 15:49 | HHI.PYPN ---
Subjective Remarks Pt seen and discussed with staff. She remains anxious and depressed but reports that symptoms are starting to improve. She did engage in some hygiene activities today and has been coming out of room more. No SI/HI. Mental Status Examination Appearance: Appropriate Consciousness: Alert Orientation: x4 Motor Activity: Other (no motor abnormalities noted) Speech: Slow Language: Adequate Fund of Knowledge: Adequate Attention and Concentration: Inadequate Mood: Irritable Affect: Irritable Thought Process & Associations: Intact, Linear Thought Content: Hallucinations (denies today) Hallucination Type: Auditory (denies today) Delusion Type: None Suicidal Ideation: No Suicidal Plan: No Suicidal Intention: No Homicidal Ideation: No Homicidal Plan: No Homicidal Intention: No Insight: Fair Judgment: Impulsive Results Labs Date/Time Source Procedure Growth Status 05/05/17 19:40 Urine Clean Catch Urine Culture - Final Enterococcus Faecalis Complete Vitals/IOs Vital Signs Date Time Temp Pulse Resp B/P (MAP) Pulse Ox O2 Delivery O2 Flow Rate FiO2 05/16/17 06:14 98.1 80 17 116/57 (90) 93 Assessment & Plan Problem List: (1) MDD (major depressive disorder), recurrent episode, severe ICD Codes: F33.2 - Major depressive disorder, recurrent severe without psychotic features Status: Acute Assessment & Plan Continue current tx plan. Estimated LOS: days Justification for Cont. Inpt. risk of decompensation Problem Qualifiers (1) MDD (major depressive disorder), recurrent episode, severe: Qualified Codes: F33.3 - Major depressive disorder, recurrent, severe with psychotic symptoms Conchis Mclean MD May 16, 2017 15:49
[2017-05-16 17:23] VITALS: BP 103/63; PULSE 75; RESP 18; TEMP 98.6; O2SAT 95
[2017-05-16] MEDS: QUEtiapine FUMARATE 300 MG TAB PO SCH (21:01)
[2017-05-16 21:04] VITALS: BP 114/53; PULSE 74
[2017-05-16] MEDS: ACETAMINOPHEN 325 MG TAB PO PRN (22:55)
[2017-05-17 06:02] VITALS: BP 125/58; PULSE 79; RESP 16; TEMP 97.8; O2SAT 95
[2017-05-17] MEDS: LEVOTHYROXINE SODIUM 50 MCG TAB PO SCH (06:23)
[2017-05-17] MEDS: amLODIPine BESYLATE 5 MG TAB PO SCH (08:58)
[2017-05-17] MEDS: FAMOTIDINE 20 MG TAB PO SCH ×2 (08:59→21:35)
[2017-05-17] MEDS: buPROPion HCL 150 MG SUSTAINED RELEASE TAB PO SCH (08:59)
[2017-05-17] MEDS: FERROUS SULFATE 325 MG (65 MG ELEMENTAL IRON) TAB PO SCH (08:59)
[2017-05-17] MEDS: METOPROLOL TARTRATE 50 MG TAB PO SCH ×2 (08:59→21:00)
[2017-05-17] MEDS: FENOFIBRATE 145 MG TAB PO SCH (08:59)
[2017-05-17] MEDS: MAGNESIUM OXIDE 400 MG TAB PO SCH (08:59)
[2017-05-17] MEDS: NYSTATIN 100,000 U/GM PWD 15 GM BTL TOPICAL SCH ×2 (09:03→21:00)
[2017-05-17] MEDS: QUEtiapine FUMARATE 100 MG TAB PO SCH ×2 (09:10→16:30)
--- NOTE | 2017-05-17 15:09 | HHI.PYPN ---
Subjective Remarks Patient was seen today for psychiatric reevaluation. Case discussed with nurse in charge. Documentation from weekend psychiatrist also reviewed. On psychiatric evaluation today the patient reports that she is concerned about her roommate. She says that her roommate doesn't allow her to sleep at night, is constantly talking to herself and restless. Other than that, the patient reports ruminating her mood. Continues to be depressed, but denies suicidal ideation, denies homicidal ideation, denies hopelessness. She has been taking her medications, no significant side effects reported. Mental Status Examination Appearance: Appropriate Consciousness: Alert Orientation: x4 Motor Activity: Other (no motor abnormalities noted) Speech: Slow Language: Adequate Fund of Knowledge: Adequate Attention and Concentration: Inadequate Mood: Irritable Affect: Irritable Thought Process & Associations: Intact, Linear Thought Content: Hallucinations (denies today) Hallucination Type: Auditory (denies today) Delusion Type: None Suicidal Ideation: No Suicidal Plan: No Suicidal Intention: No Homicidal Ideation: No Homicidal Plan: No Homicidal Intention: No Insight: Fair Judgment: Impulsive Results Labs Date/Time Source Procedure Growth Status 05/05/17 19:40 Urine Clean Catch Urine Culture - Final Enterococcus Faecalis Complete Vitals/IOs Vital Signs Date Time Temp Pulse Resp B/P (MAP) Pulse Ox O2 Delivery O2 Flow Rate FiO2 05/17/17 06:02 97.8 79 16 125/58 (80) 95 Assessment & Plan Problem List: (1) MDD (major depressive disorder), recurrent episode, severe ICD Codes: F33.2 - Major depressive disorder, recurrent severe without psychotic features Status: Acute Assessment & Plan Estimated LOS: days Justification for Cont. Inpt. Continue current psychotropic regimen. Patient has an elevated risk to decompensate at a lower level of care. Problem Qualifiers (1) MDD (major depressive disorder), recurrent episode, severe: Qualified Codes: F33.3 - Major depressive disorder, recurrent, severe with psychotic symptoms Sushil Woods MD May 17, 2017 15:09
[2017-05-17 17:00] VITALS: BP 110/50; PULSE 80; RESP 16; TEMP 97.9; O2SAT 94
[2017-05-17] MEDS: QUEtiapine FUMARATE 300 MG TAB PO SCH (21:35)
[2017-05-18] MEDS: LEVOTHYROXINE SODIUM 50 MCG TAB PO SCH (06:36)
[2017-05-18 07:05] VITALS: BP 135/58; PULSE 75; RESP 18; TEMP 97.7; O2SAT 95
[2017-05-18] MEDS: METOPROLOL TARTRATE 50 MG TAB PO SCH ×2 (08:52→21:00)
[2017-05-18] MEDS: FENOFIBRATE 145 MG TAB PO SCH (08:53)
[2017-05-18] MEDS: FERROUS SULFATE 325 MG (65 MG ELEMENTAL IRON) TAB PO SCH (08:53)
[2017-05-18] MEDS: amLODIPine BESYLATE 5 MG TAB PO SCH (08:53)
[2017-05-18] MEDS: MAGNESIUM OXIDE 400 MG TAB PO SCH (08:53)
[2017-05-18] MEDS: FAMOTIDINE 20 MG TAB PO SCH ×2 (08:53→21:01)
[2017-05-18] MEDS: NYSTATIN 100,000 U/GM PWD 15 GM BTL TOPICAL SCH ×2 (08:53→21:02)
[2017-05-18] MEDS: QUEtiapine FUMARATE 100 MG TAB PO SCH ×2 (08:53→15:28)
[2017-05-18] MEDS: buPROPion HCL 150 MG SUSTAINED RELEASE TAB PO SCH ×2 (08:53→21:01)
[2017-05-18] MEDS: ACETAMINOPHEN 325 MG TAB PO PRN (12:59)
--- NOTE | 2017-05-18 15:20 | HHI.PYPN ---
Subjective Remarks Patient seen for follow-up, chart review. Discussion she staff reported the patient continues to be somewhat malodorous, but noted to be a little more motivated, slightly less isolative mostly in bed, has not attended groups and has poor by mouth intake. Patient was found lying in hospital bed noted to be in more alert and engaging in interview today. Patient states that she is feeling "okay" reports that the weekend had been fairly well which she states had been up out of bed all day during the weekend. Patient reports that she has been eating in the dining room as well contrary to nursing report. Patient states that she agrees to shower today that her mood is "so-so" but continues to feel depressed but denied suicidal ideation or perceptual disturbances at this time. Patient reports having visited by her yesterday and with a plan visit later this evening. Patient states that she looks forward to going home to cleaning her house as well as see family. Review of Systems Except as stated in HPI: all other systems reviewed are Neg Mental Status Examination Appearance: Appropriate Consciousness: Alert Orientation: x4 Motor Activity: Other (no motor abnormalities noted) Speech: Slow Language: Adequate Fund of Knowledge: Adequate Attention and Concentration: Inadequate Mood: Appropriate Affect: Appropriate Thought Process & Associations: Intact, Goal directed, Linear Thought Content: Hallucinations (denies today) Hallucination Type: Auditory (denies today) Delusion Type: None Suicidal Ideation: No Suicidal Plan: No Suicidal Intention: No Homicidal Ideation: No Homicidal Plan: No Homicidal Intention: No Insight: Fair Judgment: Impulsive Results Labs Labs reviewed Date/Time Source Procedure Growth Status 05/05/17 19:40 Urine Clean Catch Urine Culture - Final Enterococcus Faecalis Complete Vitals/IOs Vital Signs Date Time Temp Pulse Resp B/P (MAP) Pulse Ox O2 Delivery O2 Flow Rate FiO2 05/18/17 07:05 97.7 75 18 135/58 (83) 95 Assessment & Plan Problem List: (1) MDD (major depressive disorder), recurrent episode, severe ICD Codes: F33.2 - Major depressive disorder, recurrent severe without psychotic features Status: Acute Assessment & Plan Patient at this time and noted to have improvement in mood, not endorsing suicidal ideations and noted to be slightly more motivated. Although nursing report denies patient being out of her room and noted to be isolative patient reports the contrary. Patient definitely noted to be in a more engaging and interactive which she is noted to be smiling and laughing at one point. The patient able to maintain stable mood, noted to be participatory in groups and activities as well as maintain personal hygiene all tolerating current treatment patient will be considered for discharge soon. Will increase bupropion 250 mg by mouth twice a day for depression. Continue rest of medications.. We'll await report from patient's aldair for collateral information and how he believes she is involving with her treatment. Discharge planning in progress Justification for Cont. Inpt. At risk for further decompensation if at lower level of care Discharge Planning To be discharged back to her residence when psychiatrically stable Problem Qualifiers (1) MDD (major depressive disorder), recurrent episode, severe: Qualified Codes: F33.3 - Major depressive disorder, recurrent, severe with psychotic symptoms Mg Woods MD May 18, 2017 15:20
[2017-05-18 18:51] VITALS: BP 111/70; PULSE 77; RESP 18; TEMP 98; O2SAT 96
[2017-05-18] MEDS: QUEtiapine FUMARATE 300 MG TAB PO SCH (21:01)
[2017-05-19 06:00] VITALS: BP 118/55; PULSE 69; RESP 17; TEMP 98; O2SAT 93
[2017-05-19] MEDS: LEVOTHYROXINE SODIUM 50 MCG TAB PO SCH (06:34)
[2017-05-19] MEDS: FENOFIBRATE 145 MG TAB PO SCH (08:52)
[2017-05-19] MEDS: NYSTATIN 100,000 U/GM PWD 15 GM BTL TOPICAL SCH (08:52)
[2017-05-19] MEDS: FAMOTIDINE 20 MG TAB PO SCH (08:52)
[2017-05-19] MEDS: MAGNESIUM OXIDE 400 MG TAB PO SCH (08:53)
[2017-05-19] MEDS: METOPROLOL TARTRATE 50 MG TAB PO SCH (08:53)
[2017-05-19] MEDS: FERROUS SULFATE 325 MG (65 MG ELEMENTAL IRON) TAB PO SCH (08:53)
[2017-05-19] MEDS: buPROPion HCL 150 MG SUSTAINED RELEASE TAB PO SCH (08:53)
[2017-05-19] MEDS: amLODIPine BESYLATE 5 MG TAB PO SCH (08:53)
[2017-05-19] MEDS: QUEtiapine FUMARATE 100 MG TAB PO SCH (09:00)
[2017-05-19] MEDS ORDERED: QUET1TAB10 PO (12:33)
[2017-05-19] MEDS ORDERED: BUPR150CR PO (12:33)
[2017-05-19] MEDS ORDERED: QUET1TAB8 PO (12:33)
--- NOTE | 2017-05-19 16:36 | PD.TTN ---
Patient Problems 1. Discharge planning 2. Medication compliance 3. Knowledge deficit 4. Lack of coping skills Progress Toward Goals Provider Present: Dr. Curtis Woods Provider Input: Patient is on medication regiment at hospital. Has been compliant with medications and not observed to have side effects. Patient continues to endorse low mood and feelings of depression. Patient also endorses delusions. 05/19/17 Patient is doing well. Patient will be discharged today. Home health will be set up for patient care. Nurse(s) Input: Patient is isolative to room and is relucant to self-care, such as bathing and eating. Patient does attend food groups, but prefers to be in room. Patient has no motiviation and energy. Sleeping well. 05/19/17 Patient's nurse Brittny reports patient is oriented x 3. Patient is cooperative with medications. Pleasant. Patient says roommate keeps her up at night. Psychiatric Counselors Present: Mi Pickens [facility] Psych Therapist Input: Patient continues to have delusions, such as seeing cars in hallways. Patient states that she feels low and has no energy. Patient is not attending to ADLs and will need to be monitored for changes in progress. 05/19/17 Patient is doing better. Patient will be discharged today with home health. Group Spec/RT/OT/[place] Present: Dominick Young OT Group Spec/RT/OT/[place] Input: Patient is attending food groups and remains isolative to room. 05/19/17 Patient does not attend groups Discharge Plan Once stablize, patient will return back to home with . Diamond Carolina [facility] May 19, 2017 16:36
--- NOTE | 2017-05-19 22:05 | HHI.DS ---
Psychiatry Discharge Summary Inpatient Psychiatric care?: Yes Advance Directive: No Reason Not Provided: refused Mental Health AdvanceDirective: No Health Care Proxy: No Admission Admission Date May 06, 2017 at 15:07 Admission Diagnosis: (1) MDD (major depressive disorder), recurrent episode, severe ICD Code: F33.2 - Major depressive disorder, recurrent severe without psychotic features Brief History 66-year-old female brought in voluntarily by her due to severe symptoms of depression coupled with suicidal thinking and self neglect. Patient has been admitted to [facility] on at least 2 previous occasions. She has been considered for a diagnosis of schizoaffective disorder but appears most recently to have been diagnosed with recurrent major depression. At this time, the patient is moving slowly if at all. Her speech response latency has increased dramatically. Her hygiene has deteriorated. She reports multiple symptoms of depression including depressed mood, anhedonia, diminished energy, thoughts of suicide and (without current plan), anxiety, initial and middle insomnia, feelings of hopelessness and helplessness, decreased self- esteem, and mental confusion. The patient was dropped off by her . Reportedly he did not stay for her evaluation. He also reportedly is unable to care for her. They have been for many years. The patient does not abuse alcohol or illicit substances. She is treated by Dr. Peck, on an outpatient basis and has been prescribed what what this physician considers to be a large amount of Seroquel. She is unable to contract for safety. Tobacco Use In Past 30 Days: No Tobacco Past 30 Days Alcohol Use: Never Hospital Course Patient is a 66 year-old woman, , domiciled with , with past psychiatric history of schizoaffective disorder, prior psychiatric admissions who was admitted for worsening of depressive symptoms, suicidal ideations and self neglect which she was transferred to the inpatient psychiatry unit for further evaluation and management. Patient restarted on quetiapine 50mg PO TID and titrated up to 50/50/300mg, buproprion 150mg daily and titrated up to BID, Patient was observed to have improvement of mood with decrease in depressive symptoms, denied any suicidal ideations, noted to be future oriented and goal directed. Patient was noted to have been compliant with treatment, calm and cooperative with staff and began to participate in groups and activities on the unit. Upon discharge patient stated that he was feeling good, denied any depressive, manic or psychotic symptoms, denied any SI, HI or delusions. Patient agreed to continue medication regimen and outpatient follow up for continuity of care through his ACT team along with follow up with lithium level. Patient advised to call 911 or go nearest ED in case of emergency. Patient agrees with plan. Results Blood Pressure 118 / 55 Vital Signs Date Time Temp Pulse Resp B/P (MAP) Pulse Ox O2 Delivery O2 Flow Rate FiO2 05/19/17 06:00 98.0 69 17 118/55 (76) 93 Laboratory Results Test 05/07/17 09:12 Cholesterol Level 117 MG/DL (120-200) HDL Cholesterol 45.1 MG/DL (40.0-60.0) Hemoglobin A1c 5.0 % (4.3-6.0) LDL Cholesterol 44 MG/DL (0-99) Triglycerides Level 140 MG/DL (42-150) Summary of Procedures none Pending results at discharge: No Medications # of Antipsychotic meds at D/C: 1 Approp Antipsych med options 1 - Minimum of three failed multiple trials of monotherapy. 2 - Documented plan to taper to monotherapy due to previous use of multiple meds OR cross-taper in progress at D/C. 3 - Documentation of augmentation of Clozapine. 4 - Justification other than those listed in allowable values 1-3, document here : Discharge Discharge Date: May 19, 2017 Discharge Diagnosis: (1) MDD (major depressive disorder), recurrent episode, severe ICD Code: F33.2 - Major depressive disorder, recurrent severe without psychotic features Status: Acute Pt Condition on Discharge: Stable Discharge Disposition: Disch w/ Home Health Serv Discharge Instructions Diet Instructions: Heart Healthy Diet Activities you can perform: Regular-No Restrictions Scheduled Appointment: Freddy Kuo Act Appointment Date: May 20, 2017 Appointment Time: 7:30am Discharge Time > 30 minutes Mental Status Examination Appearance: Appropriate Consciousness: Alert Orientation: x4 Motor Activity: Other (no motor abnormalities noted) Speech: Unremarkable Language: Adequate Fund of Knowledge: Adequate Attention and Concentration: Adequate Memory: Unremarkable Mood: Appropriate Affect: Appropriate Thought Process & Associations: Intact, Goal directed, Linear Thought Content: Appropriate Hallucination Type: None Delusion Type: None Suicidal Ideation: No Suicidal Plan: No Suicidal Intention: No Homicidal Ideation: No Homicidal Plan: No Homicidal Intention: No Insight: Fair Judgment: Impulsive Discharge/Advance Care Plan Health Problems: (1) MDD (major depressive disorder), recurrent episode, severe Goals to promote your health * To prevent worsening of your condition and complications * To maintain your health at the optimal level Directions to meet your goals Take your medications as prescribed Follow your dietary instruction Follow activity as directed Keep your appointments as scheduled Take your immunizations and boosters as scheduled If your symptoms worsen call your PCP, if no PCP go to Urgent Care Center or Emergency Room For 07/12 questions related to your inpatient stay or results of tests pending at discharge, please contact Dr. Mg Woods at Smoking is Dangerous to Your Health. Avoid second hand smoking Problem Qualifiers (1) MDD (major depressive disorder), recurrent episode, severe: Qualified Codes: F33.3 - Major depressive disorder, recurrent, severe with psychotic symptoms Mg Woods MD May 19, 2017 22:05
== END 2017-05-19 15:45 | disposition home or self-care (01) | DRG 885 ==
LOC: NEPJ 16:30 → NEDA 05-06 15:07 → H260 05-06 15:37
PROVIDERS: ADMIT Student in an Organized Health Care Education/Training Program; ATTEND Student in an Organized Health Care Education/Training Program
DX: F33.3 Major depressive disorder, recurrent, severe with psychotic symptoms (principal); R45.851 Suicidal ideations; E83.42 Hypomagnesemia; N39.0 Urinary tract infection, site not specified; I10 Essential (primary) hypertension; E78.5 Hyperlipidemia, unspecified; E03.9 Hypothyroidism, unspecified; M19.90 Unspecified osteoarthritis, unspecified site; E87.6 Hypokalemia; Z16.23 Resistance to quinolones and fluoroquinolones; B95.2 Enterococcus as the cause of diseases classified elsewhere; D63.8 Anemia in other chronic diseases classified elsewhere; L30.4 Erythema intertrigo; F41.9 Anxiety disorder, unspecified; R19.7 Diarrhea, unspecified; Z96.653 Presence of artificial knee joint, bilateral; R51 Headache; Z86.73 Personal history of transient ischemic attack (TIA), and cerebral infarction without residual deficits
CPT/HCPCS: 80048; 80053; 80061; 80307; 81001; 82306; 82607; 82728; 83036; 83540; 83735; 84100; 84443; 84466; 85025; 87086; 93005; 99285; Q0163